=== PATIENT | female | born 2000 | race Caucasian/White ===

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

== ENCOUNTER 2018-03-05 12:05 | Emergency (ER) | payer OTHER, SELFPAY ==
[2018-03-05 14:02] LABS: Urine Blood TRACE (NEG); Urine Glucose NEGATIVE (NEG); Urine Protein NEGATIVE (NEG); Urine Specific Gravity 1.015 (1.005-1.030)
[2018-03-05] MEDS ORDERED: NICOTINE 21 MG/PAT TD ONE (14:12)
[2018-03-05 14:26] LABS: Absolute Lymphocytes (CBC) 2.1 K/uL (0.7-4.9); Absolute Monocytes 0.3 K/uL (0.1-1.3); Eosinophils % 0.5 % (0-4.4); Hematocrit 38.2 % (36.0-45.0); Lymphocytes % 27.7 % (15.3-44.8); MCH 30.3 pg (27.0-35.0); MCV 91.4 fL (80-100); Monocytes % 4.2 % (3.3-12.3); RBC Red Blood Cell Count 4.18 M/uL (3.86-4.86)
[2018-03-05 14:36] LABS: Barbiturates NEGATIVE (NEGATIVE); Benzodiazepines NEGATIVE (NEGATIVE); Cocaine NEGATIVE (NEGATIVE); METHAMPHETAM NEGATIVE (NEGATIVE); Methadone NEGATIVE (NEGATIVE); Opiates NEGATIVE (NEGATIVE); Phencyclidine NEGATIVE (NEGATIVE); THC Cannibis POSITIVE (NEGATIVE)
[2018-03-05 14:39] LABS: Protime INR 1.03
[2018-03-05 15:16] LABS: ALT/SGPT 22 U/L (12-78); AST/SGOT 17 U/L (15-37); Albumin 4.6 g/dL (3.4-5.0); Alkaline Phosphatase 61 U/L (45-117); BUN Blood Urea Nitrogen 4 mg/dL (7-18); Bicarbonate 26 mmol/L (21-32); Bilirubin Direct < 0.1 mg/dL (0-0.2); Bilirubin Total 0.2 mg/dL (0.2-1.0); Glucose Level 89 mg/dL (74-106); Potassium 3.8 mmol/L (3.5-5.1); Protein, Total 8.1 g/dL (6.4-8.2); Sodium Level 142 mmol/L (136-145)
--- NOTE | 2018-03-05 15:20 | EDPHYS ---
Physician Documentation [facility] Name: Etta Mariscal Age: 18 yrs Sex: Female : 2000 Arrival Date: 03/05/2018 Time: 12:06 Bed 17 Private MD: ED Physician Greyson Araiza HPI: 03/05 16:42 This 18 yrs old Female presents to ER via Law Enforcement with complaints of snw depression. 16:42 The patient presents to the emergency department with depression, a history of snw substance abuse, Type: cocaine, marijuana. Onset: The symptoms/episode began/occurred pt had inpatient therapy s/p trauma. Stopped anti-depressants about 7 yrs ago. Pt states they were helpful and she should not have stopped taking them. States she really does not know why she did. Denies SI, HI. Past psychiatric history: Prior diagnosis: bipolar disorder, depression, Psychiatric medications include: none, the patient has a previous inpatient psychiatric history, the patient's last psychiatric treatment was 7 year(s) ago. Associated signs and symptoms: The patient has no apparent associated signs or symptoms. Severity of symptoms: At their worst the symptoms were moderate. The patient has experienced similar episodes in the past, chronically. The patient has been recently seen by a physician: the patient's primary care provider, earlier today, with similar presenting complaints, and was sent to the [facility] Emergency Department for further evaluation. INFECTIOUS DISEASE PHYSICIAN: 12:32 LMP 02/08/2018 aj Historical: - Allergies: 12:32 No Known Allergies; aj - Home Meds: 12:32 None [Active]; aj - PMHx: 12:32 Depression; Endometriosis; aj - PSHx: 12:32 "surgery for my endometriosis"; aj - Immunization history:: Adult Immunizations unknown. - Social history:: Smoking status: Patient uses tobacco products, smokes one-half pack cigarettes per day, Patient uses street drugs, cocaine, marijuana. - Ebola Screening: : Patient negative for fever greater than or equal to 101.5 degrees Fahrenheit, and additional compatible Ebola Virus Disease symptoms Patient denies exposure to infectious person Patient denies travel to an Ebola-affected area in the 21 days before illness onset No symptoms or risks identified at this time. ROS: 16:38 Constitutional: Negative for fever, chills, and weight loss, Eyes: Negative for injury, snw pain, redness, and discharge, ENT: Negative for injury, pain, and discharge, Neck: Negative for injury, pain, and swelling, Cardiovascular: Negative for chest pain, palpitations, and edema, Respiratory: Negative for shortness of breath, cough, wheezing, and pleuritic chest pain, Abdomen/GI: Negative for abdominal pain, nausea, vomiting, diarrhea, and constipation, Back: Negative for injury and pain, : Negative for injury, bleeding, discharge, and swelling, MS/Extremity: Negative for injury and deformity, Skin: Negative for injury, rash, and discoloration, Neuro: Negative for headache, weakness, numbness, tingling, and seizure. 16:38 Psych: Positive for depression, drug dependence, pt states she is neither suicidal nor homicidal. states, "I do not want to ". Exam: 16:36 Constitutional: This is a well developed, well nourished patient who is awake, alert, snw and in no acute distress. Head/Face: Normocephalic, atraumatic. Eyes: Pupils equal round and reactive to light, extra-ocular motions intact. Lids and lashes normal. Conjunctiva and sclera are non-icteric and not injected. Cornea within normal limits. Periorbital areas with no swelling, redness, or edema. ENT: Nares patent. No nasal discharge, no septal abnormalities noted. Tympanic membranes are normal and external auditory canals are clear. Oropharynx with no redness, swelling, or masses, exudates, or evidence of obstruction, uvula midline. Mucous membranes moist. Neck: Trachea midline, no thyromegaly or masses palpated, and no cervical lymphadenopathy. Supple, full range of motion without nuchal rigidity, or vertebral point tenderness. No Meningismus. Chest/axilla: Normal chest wall appearance and motion. Nontender with no deformity. No lesions are appreciated. Cardiovascular: Regular rate and rhythm with a normal S1 and S2. No gallops, murmurs, or rubs. Normal PMI, no JVD. No pulse deficits. Respiratory: Lungs have equal breath sounds bilaterally, clear to auscultation and percussion. No rales, rhonchi or wheezes noted. No increased work of breathing, no retractions or nasal flaring. Abdomen/GI: Soft, non-tender, with normal bowel sounds. No distension or tympany. No guarding or rebound. No evidence of tenderness throughout. Back: No spinal tenderness. No costovertebral tenderness. Full range of motion. MS/ Extremity: Pulses equal, no cyanosis. Neurovascular intact. Full, normal range of motion. Neuro: Awake and alert, GCS 15, oriented to person, place, time, and situation. Cranial nerves II-XII grossly intact. Motor strength 5/5 in all extremities. Sensory grossly intact. Cerebellar exam normal. Normal gait. 16:36 Skin: Appearance: normal except for affected area, injury, abrasion(s), very small abrasion noted, of the left hip, from cutting 4 days ago. 16:39 Psych: Behavior/mood is pleasant, cooperative, depressed, appropriate for age, Affect snw is calm, Oriented to person, place, time, Patient has no thoughts/intents to harm self or others. Judgement / Insight is normal. Delusions/hallucinations are not present. Vital Signs: 12:32 BP 137 / 92; Pulse 62; Resp 16; Temp 99.0; Pulse Ox 100% ; Weight 58.06 kg; Height 5 aj ft. 6 in. (167.64 cm); 15:26 BP 135 / 89; Pulse 64; Resp 16; Pulse Ox 99% on R/A; aj 12:32 Body Mass Index 20.66 (58.06 kg, 167.64 cm) aj MDM: 12:20 Patient medically screened. snw 14:42 Data reviewed: vital signs, nurses notes. Data interpreted: Pulse oximetry: on room air snw is 100 %. Interpretation: normal. Counseling: I had a detailed discussion with the patient and/or guardian regarding: the historical points, exam findings, and any diagnostic results supporting the discharge/admit diagnosis, the presence of at least one elevated blood pressure reading (>120/80) during this emergency department visit, lab results, radiology results. Other consultation: Billie with Jalyn Coleman in speaking with pt. 03/05 13:08 Order name: Urine Dipstick--Ancillary (enter results); Complete Time: 14:04 eb 03/05 13:08 Order name: Urine --Ancillary (enter results); Complete Time: 14:04 eb 03/05 13:49 Order name: Acetaminophen; Complete Time: 15:20 snw 03/05 13:49 Order name: Basic Metabolic Panel; Complete Time: 15:20 snw 03/05 13:49 Order name: CBC with Diff; Complete Time: 14:33 snw 03/05 13:49 Order name: ETOH Level; Complete Time: 14:30 snw 03/05 13:49 Order name: Hepatic Function; Complete Time: 15:20 snw 03/05 13:49 Order name: PT-INR; Complete Time: 14:41 snw 03/05 13:49 Order name: Ptt, Activated; Complete Time: 14:41 snw 03/05 13:49 Order name: Salicylate [facility] 03/05 13:49 Order name: Urine Drug Screen; Complete Time: 14:41 snw 03/05 15:21 Order name: Urine Culture [facility] 03/05 12:51 Order name: Diet Finger Food; Complete Time: 12:51 [facility] 03/05 13:49 Order name: Urine Test (obtain specimen); Complete Time: 13:59 snw 03/05 13:49 Order name: EKG; Complete Time: 13:49 w 03/05 13:49 Order name: EKG - Nurse/Tech; Complete Time: 13:59 snw 03/05 13:49 Order name: IV Saline Lock; Complete Time: 14:00 snw 03/05 13:49 Order name: Labs collected and sent; Complete Time: 14:00 [facility] 03/05 13:49 Order name: Urine Dipstick-Ancillary (obtain specimen); Complete Time: 14:00 snw Administered Medications: 14:11 Drug: Nicotine 21 mg/24 hr 1 patches Route: Transdermal; Site: anterior chest wall; aj 15:17 Drug: Rocephin 1 grams Route: IV; Rate: calculated rate; Site: right antecubital; aj 15:31 Follow up: Response: No adverse reaction; IV Status: Completed infusion; IV Intake: 10mlaj Disposition: 15:37 Co-signature as Attending Physician, Greyson Araiza MD I agree with the assessment and kdr plan of care. Disposition: 03/05/18 15:19 Discharged to Home. Impression: Major depressive disorder, recurrent severe without psychotic features, Drug abuse, Urinary tract infection, site not specified. - Condition is Stable. - Discharge Instructions: Urinary Tract Infection, Adult, Major Depressive Disorder, What You Need To Know About Illegal Drug Use and Dependence, Youth. - Prescriptions for Augmentin 875- 125 mg Oral Tablet - take 1 tablet by ORAL route every 12 hours for 10 days; 20 tablet. Zofran 4 mg Oral Tablet - take 1 tablet by ORAL route every 12 hours As needed; 6 tablet. - Medication Reconciliation Form, Thank You Letter, Antibiotic Education, Prescription Opioid Use form. - Follow up: Private Physician; When: 2 - 3 days; Reason: Recheck today's complaints, Continuance of care, Re-evaluation by your physician. Follow up: Emergency Department; When: As needed; Reason: Worsening of condition. Signatures: Dispatcher [employer] EDMS Sadia Bill RN RN aj Rittger, Kevin, MD MD kdr Therrien, Shelly, ADAM-C ROLLER STAKER-Csnw Corrections: (The following items were deleted from the chart) 15:32 15:19 03/05/2018 15:19 Discharged to Home. Impression: Major depressive disorder, aj recurrent severe without psychotic features; Drug abuse; Urinary tract infection, site not specified. Condition is Stable. Forms are Medication Reconciliation Form, Thank You Letter, Antibiotic Education, Prescription Opioid Use. Follow up: Private Physician; When: 2 - 3 days; Reason: Recheck today's complaints, Continuance of care, Re-evaluation by your physician. Follow up: Emergency Department; When: As needed; Reason: Worsening of condition. snw 16:38 16:36 Skin: Appearance: normal except for affected area, injury, abrasion(s), very snw small abrasion noted, of the left hip, from cutting 4 days ago, snw 16:42 16:36 Constitutional: This is a well developed, well nourished patient who is awake, snw alert, and in no acute distress. Head/Face: Normocephalic, atraumatic. Eyes: Pupils equal round and reactive to light, extra-ocular motions intact. Lids and lashes normal. Conjunctiva and sclera are non-icteric and not injected. Cornea within normal limits. Periorbital areas with no swelling, redness, or edema. ENT: Nares patent. No nasal discharge, no septal abnormalities noted. Tympanic membranes are normal and external auditory canals are clear. Oropharynx with no redness, swelling, or masses, exudates, or evidence of obstruction, uvula midline. Mucous membranes moist. Neck: Trachea midline, no thyromegaly or masses palpated, and no cervical lymphadenopathy. Supple, full range of motion without nuchal rigidity, or vertebral point tenderness. No Meningismus. Chest/axilla: Normal chest wall appearance and motion. Nontender with no deformity. No lesions are appreciated. Cardiovascular: Regular rate and rhythm with a normal S1 and S2. No gallops, murmurs, or rubs. Normal PMI, no JVD. No pulse deficits. Respiratory: Lungs have equal breath sounds bilaterally, clear to auscultation and percussion. No rales, rhonchi or wheezes noted. No increased work of breathing, no retractions or nasal flaring. Abdomen/GI: Soft, non-tender, with normal bowel sounds. No distension or tympany. No guarding or rebound. No evidence of tenderness throughout. Back: No spinal tenderness. No costovertebral tenderness. Full range of motion. MS/ Extremity: Pulses equal, no cyanosis. Neurovascular intact. Full, normal range of motion. Neuro: Awake and alert, GCS 15, oriented to person, place, time, and situation. Cranial nerves II-XII grossly intact. Motor strength 5/5 in all extremities. Sensory grossly intact. Cerebellar exam normal. Normal gait. snw
--- NOTE | 2018-03-05 15:20 | ER ---
Nurse's Notes [facility] Name: Etta Mariscal Age: 18 yrs Sex: Female : 2000 Arrival Date: 03/05/2018 Time: 12:06 Bed 17 Private MD: Diagnosis: Major depressive disorder, recurrent severe without psychotic features;Drug abuse;Urinary tract infection, site not specified Presentation: 03/05 12:29 Presenting complaint: Patient states: Reports superficial cutting to left upper aj thigh/groin area 4 days ago and 1 week ago. Patient reports history of depression. Currently denies suicidal ideation and states "I do not want to end my life.". Transition of care: Sent from [facility] in [place]. Onset of symptoms was February 25, 2018. Risk Assessment: Do you want to hurt yourself or someone else? Patient reports no desire to harm self or others. Initial Sepsis Screen: Does the patient meet any 2 criteria? No. Patient's initial sepsis screen is negative. Does the patient have a suspected source of infection? No. Patient's initial sepsis screen is negative. Care prior to arrival: None. 12:29 Method Of Arrival: Law Enforcement: Mental Health aj 12:29 Acuity: YISSEL 2 aj Triage Assessment: 12:32 General: Appears in no apparent distress. comfortable, Behavior is calm, cooperative, aj appropriate for age. Pain: Denies pain. Neuro: Level of Consciousness is awake, alert, obeys commands, Oriented to person, place, time, situation, Appropriate for age. Respiratory: Airway is patent Respiratory effort is even, unlabored, Respiratory pattern is regular, symmetrical. Derm: Skin is intact, is healthy with good turgor, Skin is pink, warm \\T\\ dry. normal, Superficial lacerations to left upper thigh/groin. Appear scabbed with no redness or inflammation noted. Does not appear infected. DIRECTOR OF PUBLIC RELATIONS: 12:32 LMP 02/08/2018 aj Historical: - Allergies: 12:32 No Known Allergies; aj - Home Meds: 12:32 None [Active]; aj - PMHx: 12:32 Depression; Endometriosis; aj - PSHx: 12:32 "surgery for my endometriosis"; aj - Immunization history:: Adult Immunizations unknown. - Social history:: Smoking status: Patient uses tobacco products, smokes one-half pack cigarettes per day, Patient uses street drugs, cocaine, marijuana. - Ebola Screening: : Patient negative for fever greater than or equal to 101.5 degrees Fahrenheit, and additional compatible Ebola Virus Disease symptoms Patient denies exposure to infectious person Patient denies travel to an Ebola-affected area in the 21 days before illness onset No symptoms or risks identified at this time. Screenin:26 Abuse screen: Denies threats or abuse. Denies injuries from another. Nutritional aj screening: No deficits noted. Tuberculosis screening: No symptoms or risk factors identified. Fall Risk None identified. Assessment: 12:43 Reassessment: Patient appears in no apparent distress at this time. No changes from aj previously documented assessment. Patient and/or family updated on plan of care and expected duration. Pain level reassessed. Patient is alert, oriented x 3, equal unlabored respirations, skin warm/dry/pink. No change from triage. 12:52 Reassessment: Mother and girlfriend are at bedside. aj 15:26 Reassessment: Patient appears in no apparent distress at this time. No changes from aj previously documented assessment. Patient and/or family updated on plan of care and expected duration. Pain level reassessed. Patient is alert, oriented x 3, equal unlabored respirations, skin warm/dry/pink. Psych: 12:36 Subjective: Patient's mood is sad, Delusions are denied. Objective: Patient is aj cooperative, Speech is normal, Affect is appropriate, Patient has mutilated themselves by cutting to left upper thigh/groin. Interventions: Removed personal items and placed in bag. Patient placed in hospital gown. Searched person for dangerous items. Urine collected and sent for urine drug test. Belonging list filled out. Collected white t-shirt, manjula shorts, 2 running style shoes, one silver colored ring, 1 red string bracelet with beads, 1 brown string bracelet with beads, 1 black elastic hair tie, 1 black sports bra. Suicide Risk Assessment: Sad Person Scale: Sex of patient: Female: Score 0 points. Age of patient: Score 1 point if patient 15-34. Depression: Score 1 point if signs of depression are present. Previous Attempt: Score 1 point if patient has previously attempted suicide. Substance Abuse: Score 1 point if patient abuses alcohol or drugs. Rational Thinking: Score 0 point if patient has rational thinking. Social Support: Score 0 if social support is present/available. Organized Plan: Score 0 if patient did not have an organized plan in place. Relationship: Score 0 point if patient has a spouse or domestic partner. Chronic Sickness: Score 0 point if patient does not have a chronic illness, debilitating, or severe disorder. Safety Checks:. Patient uses cocaine, Last use was 1 weeks ago. Patient uses marijuana daily. Vital Signs: 12:32 BP 137 / 92; Pulse 62; Resp 16; Temp 99.0; Pulse Ox 100% ; Weight 58.06 kg; Height 5 aj ft. 6 in. (167.64 cm); 15:26 BP 135 / 89; Pulse 64; Resp 16; Pulse Ox 99% on R/A; aj 12:32 Body Mass Index 20.66 (58.06 kg, 167.64 cm) ED Course: 12:00 Safety checks: Items removed: yes. Door open/sign placed on door: yes. Family/friend mh5 present: no. Sitter present: Yes. 12:06 Patient arrived in ED. mr 12:15 Safety checks: Items removed: yes. Door open/sign placed on door: yes. Family/friend mh5 present: no. Sitter present: Yes. 12:20 Lois Licona FNP-C [facility]. snw 12:20 Greyson Araiza MD is Attending Physician. snw 12:28 Sadia Bill, SULAIMAN is Primary Nurse. aj 12:30 Safety checks: Items removed: yes. Door open/sign placed on door: yes. Family/friend mh5 present: no. Sitter present: Yes. 12:32 Triage completed. aj 12:32 Arm band placed on left wrist. Patient placed in an exam room, on a stretcher. aj 12:45 Safety checks: Items removed: yes. Door open/sign placed on door: yes. Family/friend mh5 present: yes. Family/friends encouraged to stay with patient. Sitter present: Yes. 12:49 Initial lab(s) drawn, by me, sent to lab. Urine collected: clean catch specimen, clear. mh5 Inserted saline lock: 22 gauge in right antecubital area, using aseptic technique. Blood collected. 13:00 Safety checks: Items removed: yes. Door open/sign placed on door: yes. Family/friend mh5 present: yes. Family/friends encouraged to stay with patient. Sitter present: Yes. 13:10 Diet: Patient given a regular meal tray. [facility] 13:11 Urine --Ancillary (enter results) Sent. [facility] 13:11 Urine Dipstick--Ancillary (enter results) Sent. [facility] 13:15 Safety checks: Items removed: yes. Door open/sign placed on door: yes. Family/friend mh5 present: yes. Sitter present: Yes. 13:30 Safety checks: Items removed: yes. Door open/sign placed on door: yes. Family/friend mh5 present: yes. Family/friends encouraged to stay with patient. Sitter present: Yes. 13:45 Safety checks: Items removed: yes. Door open/sign placed on door: yes. Family/friend dg1 present: yes. Family/friends encouraged to stay with patient. Sitter present: Yes. 14:00 Safety checks: Items removed: yes. Door open/sign placed on door: yes. Family/friend dg1 present: yes. Family/friends encouraged to stay with patient. Sitter present: Yes. 14:13 Safety checks: Items removed: yes. Door open/sign placed on door: yes. Family/friend dg1 present: Other: instructional services specialist in room with patient Sitter present: Yes. 14:13 EKG done, by oven technician. reviewed by Lois DIA sm3 14:39 Safety checks: Items removed: yes. Door open/sign placed on door: yes. Family/friend dg1 present: Other: instructional services specialist in room with patient Sitter present: Yes. 14:54 Safety checks: Items removed: yes. Door open/sign placed on door: yes. Family/friend dg1 present: yes. Sitter present: Yes. 15:26 Patient has correct armband on for positive identification. aj 15:26 No provider procedures requiring assistance completed. IV discontinued, bleeding aj controlled, No redness/swelling at site. Pressure dressing applied. Administered Medications: 14:11 Drug: Nicotine 21 mg/24 hr 1 patches Route: Transdermal; Site: anterior chest wall; aj 15:17 Drug: Rocephin 1 grams Route: IV; Rate: calculated rate; Site: right antecubital; aj 15:31 Follow up: Response: No adverse reaction; IV Status: Completed infusion; IV Intake: 10mlaj Intake: 15:31 IV: 10ml; Total: 10ml. maryana Outcome: 15:19 Discharge ordered by . guillermo 15:26 Discharged to home ambulatory, with family, with significant other. maryana 15:26 Condition: good 15:26 Discharge instructions given to patient, family, significant other, Instructed on discharge instructions, follow up and referral plans. medication usage, Demonstrated understanding of instructions, follow-up care, medications, Prescriptions given X 2. 15:32 Patient left the ED. aj Addendum: 03/08/2018 13:40 Addendum: Culture Results: Positive urine culture. Bacteria is resistant to, has i w intermediate sensitivity, or is not tested against prescribed antibiotics. Report given to MARIO for further evaluation and then to supervisor alteration workroom for follow up with patient. Phone call Attempt #1 spoke with pt mother who states that the pt phone was cut off but now she has a new phone number which is , pt was notified via telephone, no urinary symptoms, no further action needed. Signatures: Sadia Bill, Lois Ramirez RN, SALES FORECAST ANALYST-C SALES FORECAST ANALYST-Csnw Zita Edward Irene, Zita Chilel RN [facility] Janet Pool 3 Maria Del Rosario Conley 1 Corrections: (The following items were deleted from the chart) 03/05 12:40 12:32 58.06 kg; Height 5 ft. 6 in.; BMI: 20.6; maryana mijares
[2018-03-05] MEDS ORDERED: CEFTRIAXONE/SWI 1gm 1 GM/10 ML SYR ONE (15:21)
--- NOTE | 2018-03-06 06:56 | EKG ---
Test Date: 2018-03-05 Test Time: 13:56:34 Precision Dancer: AG/S MEASUREMENT RESULTS: Intervals: Rate: 75 WA: 150 QRSD: 96 QT: 378 QTc: 422 [place]: P: 46 WA: 150 QRS: 84 T: 25 INTERPRETIVE STATEMENTS: Normal sinus rhythm Normal ECG Compared to ECG 07/22/2017 21:19:41 No significant changes Electronically Signed On 03-06-18 06:54:43 CDT by Lazaro Vergara
== END 2018-03-05 15:32 | disposition home or self-care (01) ==
LOC: ER 12:05
DX: N39.0 Urinary tract infection, site not specified (principal); F14.10 Cocaine abuse, uncomplicated; F12.10 Cannabis abuse, uncomplicated; F17.210 Nicotine dependence, cigarettes, uncomplicated
CPT/HCPCS: 36415; 80048; 80076; 80307; 80320; 80329; 81003; 81025; 85025; 85610; 85730; 87077; 87086; 87088; 87186; 93005; 96374; 99284; J0696

== ENCOUNTER 2018-08-10 15:12 | Emergency (ER) | payer OTHER, SELFPAY ==
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
[2018-08-10] MEDS ORDERED: HYDROCODONE/APAP 5/325 MG TAB ONE (17:19)
[2018-08-10] MEDS ORDERED: DIAZEPAM 2 MG TABLET ONE (17:20)
== END 2018-08-10 17:26 | disposition home or self-care (01) ==
LOC: ER 15:12
DX: M62.830 Muscle spasm of back (principal); V49.40XA Driver injured in collision with unspecified motor vehicles in traffic accident, initial encounter; F17.210 Nicotine dependence, cigarettes, uncomplicated
CPT/HCPCS: 72040; 72070; 72100; 99284

== ENCOUNTER 2020-10-21 12:52 | Emergency (ER) | payer SELFPAY ==
--- OUTSIDE RECORDS SUMMARY | 2020-10-21 12:54 | XMS REPORT | Continuity of Care Document ---
:2000 Author Organization [facility] t Address [address] [place] [place] [address] Care Team Providers Name Role Phone Candis Dow Attending Clinician Shanthi Das DO Attending Clinician Payers Payer Name Policy Type Policy Number Effective Date Expiration Date S ource Problems This patient has no known problems. Allergies, Adverse Reactions, Alerts This patient has no known allergies or adverse reactions. Medications This patient has no known medications. Procedures This patient has no known procedures. Encounters Start End Encounter Admission Attending Care Care Encounter Source Date/Time Date/Time Type Type Clinicians Facility Department ID 2020-02-10 2020-02-10 Emergency Kimmy Sharif [facility] [id number] 12:09:00 13:46:00 Candis Robb [id number] [place] [id number] [place] [id number] 2019-08-20 2019-08-20 Emergency GALLITO Das [id number] 01:23:35 01:46:00 Zoë Robb [id number] [place] [id number] [place] [address] [id number] Results Test Description Test Time Test Comments Results Result [facility] e Comments - US TRANSVAGINAL 2020-05-29 NON OB 16:46:00 [facility] : 2000 Sex: F Patient Name: CRISTIANO MARISCAL Unit No: [id number] EXAMS: CPT CODE: [id number] [place] [id number] B2 EXAM: Pelvic ultrasound HISTORY: ENDOMETRIOSIS/VAGINAL BLEEDING TECHNIQUE: Grayscale, color flow and spectral Doppler transabdominal and transvaginal ultrasound images were obtained. COMPARISON: 11/12/2018 FINDINGS: The uterus measures 5.8 x 2.1 x 3.9 cm. Endometrial stripe measures 5 mm. The uterus is otherwise normal in appearance. The right ovary measures 2.8 x 1.9 x 3.5 cm and the left ovary measures 2.2 x 1.5 x 1.7 cm. Normal ovarian blood flow is seen bilaterally. Mild amount of free fluid is seen in the pelvic cul-de-sac. IMPRESSION: Unremarkable pelvic ultrasound. at 1646 Reported and signed by: Lencho Leo MD CC: Stella Burkett MD Technologist: Salas Mortensen, RT(R),RDMS(AB); DC TV1 SN [id number] Transcrpt Date/Tm/Trnsp: 05/29/2020 (164) [email or web address] Orig Print D/T: S: 05/29/2020 (331) [facility] [facility] NAME: CRISTIANO MARISCAL [id number] [facility] [address] PHYS: [place] [address] : 2000 AGE: 20 SEX: F LOC: GonzaloMinhFARHAD PHONE #: [phone] EXAM DATE: 05/29/2020 STATUS: REG REF FAX #: [phone] RADIOLOGY NO: PAGE 1 Signed Report - US PELVIS 2020-05-29 COMPLETE 16:46:00 [facility] : 2000 Sex: F Patient Name: CRISTIANO MARISCAL Unit No: [id number] EXAMS: CPT CODE: [id number] US PELVIS COMPLETE [id number] B2 EXAM: Pelvic ultrasound HISTORY: ENDOMETRIOSIS/VAGINAL BLEEDING TECHNIQUE: Grayscale, color flow and spectral Doppler transabdominal and transvaginal ultrasound images were obtained. COMPARISON: 11/12/2018 FINDINGS: The uterus measures 5.8 x 2.1 x 3.9 cm. Endometrial stripe measures 5 mm. The uterus is otherwise normal in appearance. The right ovary measures 2.8 x 1.9 x 3.5 cm and the left ovary measures 2.2 x 1.5 x 1.7 cm. Normal ovarian blood flow is seen bilaterally. Mild amount of free fluid is seen in the pelvic cul-de-sac. IMPRESSION: Unremarkable pelvic ultrasound. at 1646 Reported and signed by: Lencho Leo MD CC: Stella Burkett MD Technologist: Salas Mortensen, RT(R),GEOFFREY(AB) Transcrpt Date/Tm/Trnsp: 05/29/2020 (1646) [email or web address] Orig Print D/T: S: 05/29/2020 (7160) [facility] NAME: CRISTIANO MARISCAL [id number] [facility] [address] PHYS: [place] [address] : 2000 AGE: 20 SEX: F LOC: CHRISTIANNE PHONE #: [phone] EXAM DATE: 05/29/2020 STATUS: REG REF FAX #: [phone] RADIOLOGY NO: PAGE 1 Signed Report - US TRANSVAGINAL 2018-11-12 Patient Name: NON OB 16:24:00 CRISTIANO MARISCAL Unit No: [id number] EXAMS: CPT CODE: [id number] [place] [id number] EXAMINATION: - US PELVIS COMPLETE, - US TRANSVAGINAL NON OB. LOCATION: S17. HISTORY: Endometriosis. COMPARISON: None. FINDINGS: Sonographic evaluation of the pelvis was performed transabdominally through a distended urinary bladder and transvaginally utilizing grayscale, pulse Doppler and color flow imaging. The uterus appears unremarkable in echotexture and measures 5.0 x 5.9 x 3.5 cm. The endometrial stripe measures 4 mm in thickness. The right ovary measures 3.1 x 3.3 x 2 cm and appears unremarkable. The left ovary measures 2.2 x 3.3 x 2.3 cm and appears unremarkable. Arterial and venous flow is noted within the bilateral ovaries. Small free fluid is identified in the cul-de-sac, presumably physiologic. IMPRESSION: Unremarkable pelvic sonogram. at 1624 Reported and signed by: Scott Cantu CC: Stella Burkett MD Technologist: Salas Mortensen, RT(R),RDMS(AB); [facility] TV1 SN [id number] Transcrpt Date/Tm/Trnsp: 11/12/2018 (1624) [email or web address] Orig Print D/T: S: 11/12/2018 (6908) [facility] NAME: CRISTIANO MARISCAL [id number] [facility] [address] PHYS: [place] [address] : 2000 AGE: 18 SEX: F LOC: CHRISTIANNE PHONE #: [phone] EXAM DATE: 11/12/2018 STATUS: PRE CLI FAX #: [phone] RADIOLOGY NO: PAGE 1 Signed Report - US PELVIS 2018-11-12 Patient Name: COMPLETE 16:24:00 CRISTIANO MARISCAL Unit No: [id number] EXAMS: CPT CODE: [id number] US PELVIS COMPLETE [id number] EXAMINATION: - US PELVIS COMPLETE, - US TRANSVAGINAL NON OB. LOCATION: S17. HISTORY: Endometriosis. COMPARISON: None. FINDINGS: Sonographic evaluation of the pelvis was performed transabdominally through a distended urinary bladder and transvaginally utilizing grayscale, pulse Doppler and color flow imaging. The uterus appears unremarkable in echotexture and measures 5.0 x 5.9 x 3.5 cm. The endometrial stripe measures 4 mm in thickness. The right ovary measures 3.1 x 3.3 x 2 cm and appears unremarkable. The left ovary measures 2.2 x 3.3 x 2.3 cm and appears unremarkable. Arterial and venous flow is noted within the bilateral ovaries. Small free fluid is identified in the cul-de-sac, presumably physiologic. IMPRESSION: Unremarkable pelvic sonogram. at 1624 Reported and signed by: Scott Cantu CC: Stella Burkett MD Technologist: Salas Mortensen, RT(R),RDMS(AB) Transcrpt Date/Tm/Trnsp: 11/12/2018 (8534) [email or web address] Orig Print D/T: S: 11/12/2018 (4380) [facility] NAME: CRISTIANO MARISCAL [address] [place] [address] PHYS: [place] [address] : 2000 AGE: 18 SEX: F LOC: CHRISTIANNE PHONE #: [phone] EXAM DATE: 11/12/2018 STATUS: PRE CLI FAX #: [phone] RADIOLOGY NO: PAGE 1 Signed Report
--- NOTE | 2020-10-21 13:30 | EDPHYS ---
Physician Documentation [facility] Name: Etta Mariscal Age: 20 yrs Sex: Female : 2000 Arrival Date: 10/21/2020 Time: 12:54 Bed 12 Private MD: GUS Physician Aab Jimenez HPI: 10/21 13:58 This 20 yrs old Female presents to ER via Ambulatory with complaints of Sore kb Throat, Headache. 13:58 The patient presents with sore throat. The patient describes throat pain as constant. kb Onset: The symptoms/episode began/occurred yesterday. Severity of symptoms: At their worst the symptoms were moderate, in the emergency department the symptoms are unchanged. Modifying factors: The symptoms are alleviated by nothing, the symptoms are aggravated by swallowing, Patient's oral intake status: limited fluid intake, limited food intake. Associated signs and symptoms: Pertinent positives: fever, headache, Sore throat Pertinent negatives shortness of breath. The patient has experienced similar episodes in the past. The patient has not recently seen a physician. Pt reports sore throat that started last night. States she has had strep many times in the past and it feels the same. States headache started this morning and she had a fever at triage, but is unsure if she had one at home. 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 - Social history:: Smoking status: Patient denies any tobacco usage or history of. ROS: 13:57 Respiratory: Negative for shortness of breath, cough, wheezing, and pleuritic chest kb pain. 13:57 Constitutional: Positive for fever. 13:57 ENT: Positive for sore throat. 13:57 Neuro: Positive for headache. Exam: 13:59 Constitutional: This is a well developed, well nourished patient who is awake, alert, kb and in no acute distress. Cardiovascular: Regular rate and rhythm with a normal S1 and S2. No gallops, murmurs, or rubs. No pulse deficits. Respiratory: Respirations even and unlabored. No increased work of breathing, no retractions or nasal flaring. Skin: Warm, dry with normal turgor. Normal color. MS/ Extremity: Pulses equal, no cyanosis. Neurovascular intact. Full, normal range of motion. Neuro: Awake and alert, GCS 15, oriented to person, place, time, and situation. Moves all extremities. Normal gait. 13:59 ENT: Mouth: is normal, Posterior pharynx: Airway: normal, Tonsils: bilaterally enlarged, with erythema, with exudate, Uvula: normal, midline, swelling, that is moderate, erythema, that is moderate, exudate, that is moderate. Vital Signs: 13:02 BP 115 / 77; Pulse 94; Resp 17; Temp 99.3(O); Pulse Ox 100% on R/A; Weight 52.62 kg 7 (R); Height 5 ft. 5 in. (165.10 cm); Pain 10/10; 13:02 Body Mass Index 19.30 (52.62 kg, 165.10 cm) jl7 MDM: 13:11 Patient medically screened. 13:56 Data reviewed: vital signs, nurses notes. Data interpreted: Pulse oximetry: on room air kb is 100 %. Interpretation: normal. Counseling: I had a detailed discussion with the patient and/or guardian regarding: the historical points, exam findings, and any diagnostic results supporting the discharge/admit diagnosis, lab results, the need for outpatient follow up, a family practitioner, to return to the emergency department if symptoms worsen or persist or if there are any questions or concerns that arise at home. 16:42 Data reviewed: lab test result(s). perez 10/21 13:07 Order name: Strep jl7 10/21 13:08 Order name: Group A Streptococcus Rapid Sc; Complete Time: 13:26 EDMS Administered Medications: 13:17 Drug: GI Cocktail without - (Maalox Suspension 30 ml, Lidocaine Liquid 2 % 15 jl7 ml) Route: PO; 13:30 Follow up: Response: No adverse reaction; Pain is decreased ss 13:47 Drug: Bicillin L-A (penicillin G Benzathine) 1.2 million units Route: IM; Site: right ss gluteus; 13:59 Follow up: Response: No adverse reaction ss Disposition: 10/21/20 13:30 Discharged to Home. Impression: Streptococcal pharyngitis. - Condition is Stable. - Discharge Instructions: Strep Throat, [id number]. - Medication Reconciliation Form, Thank You Letter, Antibiotic Education, Prescription Opioid Use form. - Follow up: Emergency Department; When: As needed; Reason: Worsening of condition. Follow up: Private Physician; When: 2 - 3 days; Reason: Recheck today's complaints, Continuance of care, Re-evaluation by your physician. Addendum: 10/23/2020 09:40 Co-signature as Attending Physician, Aba Jimenez MD I agree with the assessment and c watkins plan of care. Signatures: Dispatcher [employer] EDMS Rochelle Juarez, ORDINARY SEAMAN-C ORDINARY SEAMAN-Joseb Aba Jimenez MD MD cha Smirch, Shelby, RN RN Macario Edmonds RN RN jl7 Corrections: (The following items were deleted from the chart) 10/21 13:59 13:30 10/21/2020 13:30 Discharged to Home. Impression: Streptococcal pharyngitis. ss Condition is Stable. Forms are Medication Reconciliation Form, Thank You Letter, Antibiotic Education, Prescription Opioid Use. Follow up: Emergency Department; When: As needed; Reason: Worsening of condition. Follow up: Private Physician; When: 2 - 3 days; Reason: Recheck today's complaints, Continuance of care, Re-evaluation by your physician. kb
--- NOTE | 2020-10-21 13:30 | ER ---
Nurse's Notes [facility] Name: Etta Mariscal Age: 20 yrs Sex: Female : 2000 Arrival Date: 10/21/2020 Time: 12:54 Bed 12 Private MD: Diagnosis: Streptococcal pharyngitis Presentation: 10/21 13:02 Chief complaint: Patient states: Swollen tonsils with white patches and sore throat jl7 since yesterday and BURNS started this morning. Denies N/V/D. Coronavirus screen: Client denies travel out of the [place] in the last 14 days. At this time, the client does not indicate any symptoms associated with coronavirus-19. Ebola Screen: No symptoms or risks identified at this time. Initial Sepsis Screen: Does the patient meet any 2 criteria? No. Patient's initial sepsis screen is negative. Does the patient have a suspected source of infection? No. Patient's initial sepsis screen is negative. Risk Assessment: Do you want to hurt yourself or someone else? Patient reports no desire to harm self or others. Onset of symptoms was October 20, 2020. Care prior to arrival: None. 13:02 Method Of Arrival: Ambulatory jl7 13:02 Acuity: YISSEL 4 jl7 Triage Assessment: 13:05 General: Appears in no apparent distress. uncomfortable, Behavior is calm, cooperative, jl7 appropriate for age. Pain: Complains of pain in throat Pain currently is 10 out of 10 on a pain scale. EENT: Throat is reddened has enlarged tonsils bilaterally. Neuro: Level of Consciousness is awake, alert, obeys commands, Oriented to person, place, time, situation. Cardiovascular: Patient's skin is warm and dry. Respiratory: Airway is patent Respiratory effort is even, unlabored, Respiratory pattern is regular, symmetrical. Derm: Skin is pink, warm \T\ dry. 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 - Social history:: Smoking status: Patient denies any tobacco usage or history of. Screenin:17 Abuse screen: Denies threats or abuse. Denies injuries from another. Nutritional jl7 screening: No deficits noted. Tuberculosis screening: No symptoms or risk factors identified. Fall Risk None identified. Assessment: 13:17 General: See triage assessment. Respiratory: Airway is patent Respiratory effort is jl7 even, unlabored, Respiratory pattern is regular, symmetrical, Breath sounds are clear bilaterally. 13:49 Reassessment: awaiting shot time. ss Vital Signs: 13:02 BP 115 / 77; Pulse 94; Resp 17; Temp 99.3(O); Pulse Ox 100% on R/A; Weight 52.62 kg jl7 (R); Height 5 ft. 5 in. (165.10 cm); Pain 10/10; 13:02 Body Mass Index 19.30 (52.62 kg, 165.10 cm) jl7 ED Course: 12:54 Patient arrived in ED. cl3 13:03 Rochelle Juarez FNP-C is PHCP. kb 13:03 Aba Jimenez MD is Attending Physician. kb 13:04 Triage completed. jl7 13:05 Arm band placed on right wrist. jl7 13:10 Macario Mensah, RN is Primary Nurse. jl7 13:15 Strep swab sent to lab. jl7 13:17 Patient has correct armband on for positive identification. Call light in reach. Side jl7 rails up X 1. 13:18 No provider procedures requiring assistance completed. Patient did not have IV access jl7 during this emergency room visit. Administered Medications: 13:17 Drug: GI Cocktail without - (Maalox Suspension 30 ml, Lidocaine Liquid 2 % 15 jl7 ml) Route: PO; 13:30 Follow up: Response: No adverse reaction; Pain is decreased ss 13:47 Drug: Bicillin L-A (penicillin G Benzathine) 1.2 million units Route: IM; Site: right ss gluteus; 13:59 Follow up: Response: No adverse reaction ss Outcome: 13:30 Discharge ordered by . kb 13:49 Condition: stable ss 13:49 Discharge instructions given to patient, Instructed on discharge instructions, follow up and referral plans. medication usage, Demonstrated understanding of instructions, follow-up care, medications, Prescriptions given X 1. 13:49 Discharged to home ambulatory. ss 13:59 Patient left the ED. ss Signatures: Rochelle Juarez, ANGELA MEDINA-Christina Arrington, RN RN Macario Mensah RN RN [email or web address] Aaliyah Keating cl3
[2020-10-21] MEDS ORDERED: MAGNES/ALUMIN/SIMET 30ML UCUP ONE (13:32)
[2020-10-21] MEDS ORDERED: LIDOCAINE VISCOUS 2% SOLN 15 ML UDC ONE (13:32)
[2020-10-21] MEDS ORDERED: PEN G BENZ LA 1.2MU/2ML SYRINGE IM ONE (14:02)
[2020-10-21 14:15] VITALS: BP 115/77; TEMP 99.3; O2SAT 100
== END 2020-10-21 13:59 | disposition home or self-care (01) ==
LOC: ER 12:52
DX: J02.0 Streptococcal pharyngitis (principal); F41.9 Anxiety disorder, unspecified; F32.9 Major depressive disorder, single episode, unspecified
CPT/HCPCS: 87081; 96372; 99283; J0561

== ENCOUNTER 2020-11-08 00:49 | Emergency (ER) | payer SELFPAY ==
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
[2020-11-08] MEDS ORDERED: NA CHLORIDE 0.9% 1,000 ML ONE (01:29)
[2020-11-08 01:48] LABS: ALT/SGPT 19 U/L (12-78); AST/SGOT 17 U/L (15-37); Albumin 3.8 g/dL (3.4-5.0); Alkaline Phosphatase 62 U/L (45-117); BUN Blood Urea Nitrogen 9 mg/dL (7-18); Bicarbonate 22 mmol/L (21-32); Bilirubin Direct < 0.1 mg/dL (0-0.2); Bilirubin Total 0.2 mg/dL (0.2-1.0); Glucose Level 89 mg/dL (74-106); Potassium 3.6 mmol/L (3.5-5.1); Sodium Level 150 mmol/L (136-145)
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
[2020-11-08 07:02] VITALS: TEMP 97.9
[2020-11-08 07:08] VITALS: O2SAT 99
[2020-11-08 07:18] VITALS: BP 112/78
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
--- NOTE | 2020-11-08 11:57 | EKG ---
Test Date: 2020-11-08 Test Time: 01:25:30 [employer] [place]: SATYA MEASUREMENT RESULTS: Intervals: Rate: 91 AK: 182 QRSD: 100 QT: 366 QTc: 450 [place]: P: 36 AK: 182 QRS: 89 T: 27 INTERPRETIVE STATEMENTS: Normal sinus rhythm Normal ECG Compared to ECG 03/05/2018 13:56:34 No significant changes Electronically Signed On 11-08-20 11:56:49 CDT by Lazaro Vergara
== END 2020-11-08 06:51 | disposition home or self-care (01) ==
LOC: ER 00:49
DX: Z04.1 Encounter for examination and observation following transport accident (principal); F10.129 Alcohol abuse with intoxication, unspecified; F41.9 Anxiety disorder, unspecified; F32.9 Major depressive disorder, single episode, unspecified; Y90.8 Blood alcohol level of 240 mg/100 ml or more
CPT/HCPCS: 36415; 70450; 71045; 72125; 80048; 80076; 80320; 80329; 93005; 96360; 99284; J7030

== ENCOUNTER 2022-05-16 14:17 | Emergency (ER) | payer OTHER ==
--- OUTSIDE RECORDS SUMMARY | 2022-05-16 16:01 | XMS REPORT | Continuity of Care Document ---
:2000 Author Organization [facility] [place] t Address [address] [place] [address] Care Team Providers Name Role Phone Pcp, Patient Does Not Have A Primary Care Physician [phone] NICOLE ANGUIANO Attending Clinician Unavailable Nicole Anguiano MD Attending Clinician Neville Canales MD Attending Clinician Channing Andrade CRNA Attending Clinician Doctor Unassigned, [place] Attending Clinician Unavailable Pob, [facility] Lab Main Attending Clinician Unavailable DAVIN CARRILLO Attending Clinician Unavailable Davin Carrillo PA-C Attending Clinician 2, [facility] Attending Clinician Unavailable Ultrasound, Adc Mfm Attending Clinician Unavailable Bessy Ryan MD Attending Clinician [phone] BESSY RYAN Attending Clinician Unavailable GABRIELA SERRANO Attending Clinician Unavailable Kindra Beck Attending Clinician Gabriela Serrano MD Attending Clinician DORYS ALEJANDRE Attending Clinician Unavailable Dorys Alejandre MD Attending Clinician 1, [facility] Attending Clinician Unavailable JOEY, KATYE R Attending Clinician Unavailable Joey MEDINA, Regina Harry Attending Clinician Ryan García MD Attending Clinician Kimmy Dow Attending Clinician Cari MEDINA, Ryan Nolasco Attending Clinician TamStella joel Attending Clinician Unavailable Raju_P Attending Clinician Unavailable Zoë Das DO Attending Clinician GABRIELA SERRANO Admitting Clinician Unavailable Nicole Anguiano MD Admitting Clinician NICOLE ANGUIANO Admitting Clinician Unavailable Gabriela Serrano MD Admitting Clinician Kwadwo Stella Admitting Clinician Unavailable Rajchantelle_P Admitting Clinician Unavailable Payers Payer Name Policy Type Policy Number Effective Date Expiration Date Vazquez pardo [facility] [id number] 2021 00:00:00 Problems Condition Condition Condition Status Onset Resolution Last Treating Co mments Source Name Details Category Date Date Treatment Clinician Date Liveborn Liveborn Disease Active Unive rs , of , of 11-15 it y of john john 00:[place] , , 00 Me dical born in born in [facility] by vaginal by vaginal delivery delivery 39 weeks 39 weeks Disease Active Unive rs gestation gestation 11-14 ity of of of 00:00: [place] 00 [facility] Encounter Encounter Disease Active Uni vers for for 11-14 ity of planned planned 00:00: [place] induction induction 00 [facility] of labor of labor Branch 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 00:00: [place] spine, spine, 00 Medical mild mild Branch Anemia of Anemia of Disease Active Uni vers mother in mother in 10-09 [place]y [place] , , [place]ical condition condition Bran ch Anemia of Anemia of Disease Active Uni vers mother in mother in 10-09 ity of , , [place] antepartum antepartum 00 Md dical Branch History of History of Disease Active U nivers anxiety anxiety 3-30 ity of 00:00: [place] [id number] Medical Branch History of History of Disease Active U nivers depression depression 3-30 it y of 00:00: [address] Shortness Shortness Disease Active Uni vers of breath of breath 1-24 ity of 00:00: [address] Branch High risk High risk Disease Active 2020-06 Uni vers , , 1-29 it y of antepartum antepartum 00:00: [address] Trauma Trauma Disease Active Univers ity of [facility] Allergies, Adverse Reactions, Alerts Allergy Allergy Status Severity Reaction(s) Onset Inactive Treating Comm ents Source Name Type Date Date Clinician NO KNOWN Drug Active Univers ALLERGIE Class ity of S [facility] Social History Social Habit Start Date Stop Date Quantity Comments Source ASSERTION 2021-02-25 University of 00:00:00 [facility] History SDOH University o f Alcohol Frequency [facility] edical Branch History SDOH University o f Alcohol Std [place] Medical Drinks Branch History SDMI University o f Alcohol Binge [place] Medic al Branch Exposure to 2021-12-10 2021-12-20 Not sure [facility] SARS-CoV-2 00:00:00 15:50:00 [facility] (event) [place] Alcohol intake 2021-05-14 2021-05-14 Ex-drinker University 00:00:00 00:00:00 (finding) [facility] Tobacco use and 2021-05-14 2021-05-14 Current user Univers ity of exposure 00:00:00 00:00:00 [facility] Tobacco Comment 2018-11-20 2018-11-20 started at age 8 Un iversity of 00:00:00 00:00:00 [facility] Alcohol Comment 2017-09-29 2017-09-29 occasional Universit y of 00:00:00 00:00:00 [facility] Sex Ass[birth year] At [birth year] Universit y of 00:00:00 00:00:00 [facility] Smoking Status Start Date Stop Date Source Never smoker [facility] Medications Ordered Filled Start Stop Current Ordering Indication Dosage Frequency Signature Comments Components Source Medication Medication Date Date Medication? Clinician (SIG) Name Name LETY 2021- No Take by Univers no.95/edgar 6-03 06-03 mouth. ity o f us 07:41: 00:00 [place] fum/folic 13 :00 Medical ac Branch ( ORAL) Yes [id number] 1{tbl} Take 1 U nivers vitamin 6-03 tablet by ity of w/FA tablet 00:00: mouth [place] 00 daily. Medical Branch docusate Yes [id number] 200mg Take 2 Un yadiel 100 mg 6-03 capsules ity of capsule 00:00: by mouth [place] 00 once daily Medical as needed Branch for Constipati on. ferrous Yes [id number] 325mg Take 1 Uni vers sulfate 325 6-03 tablet by ity of mg (65 mg 00:00: mouth 2 [place] iron) 00 (two) Medical tablet times Branch daily. ibuprofen Yes [id number] 600mg Take 1 U nivers 600 mg 6-03 tablet by ity of tablet 00:00: mouth [place] 00 every 6 Medical (six) Branch hours as needed (Pain). Take with food or milk. Yes [id number] 1{tbl} Take 1 U nivers vitamin 6-03 tablet by ity of w/FA tablet 00:00: mouth [place] 00 daily. Medical Branch docusate 0 Yes [id number] 200mg Take 2 Un yadiel 100 mg 6-03 capsules ity of capsule 00:00: by mouth [place] 00 once daily Medical as needed Branch for Constipati on. ferrous Yes [id number] 325mg Take 1 Uni vers sulfate 325 6-03 tablet by ity of mg (65 mg 00:00: mouth 2 [place] iron) 00 (two) Medical tablet times Branch daily. ibuprofen Yes [id number] 600mg Take 1 U nivers 600 mg 6-03 tablet by ity of tablet 00:00: mouth [place] 00 every 6 Medical (six) Branch hours as needed (Pain). Take with food or milk. 2021-0 Yes [id number] 1{tbl} Take 1 U nivers vitamin 6-03 tablet by ity of w/FA tablet 00:00: mouth [place] 00 daily. Medical Branch docusate 0 Yes [id number] 200mg Take 2 Un yadiel 100 mg 6-03 capsules ity of capsule 00:00: by mouth [place] 00 once daily Medical as needed Branch for Constipati on. ferrous 2021-0 Yes [id number] 325mg Take 1 Uni vers sulfate 325 6-03 tablet by ity of mg (65 mg 00:00: mouth 2 [place] iron) 00 (two) Medical tablet times Branch daily. ibuprofen 0 Yes [id number] 600mg Take 1 U nivers 600 mg 6-03 tablet by ity of tablet 00:00: mouth [place] 00 every 6 Medical (six) Branch hours as needed (Pain). Take with food or milk. witch Erick 2021-0 Yes Topical, Un yadiel (TUCKS) 50 6-02 Q4HPRN, ity of % topical 10:49: [place] pad 33 on [facility] Medical 11/15/21 at Branch 0549, Until Discontinu ed, Routine, rectal/hem orrhoidal pain HYDROcodone 0 Yes 1{tbl} 1 tablet, Univers -acetaminop 11-15 Oral, ity of hen (NORCO 10:49: Q6HPRN, [place] 5) 5-325 mg 33 Starting Medi nikia tablet 1 on [facility] Branch tablet 11/15/21 at 0549, Until Discontinu ed, Routine, Pain (scale 7-10) ibuprofen Yes 600mg 600 mg, [facility] ers (IBU) 6 Oral, ity of tablet 600 10:49: Q6HPRN, [place] mg 33 Starting Medical on [facility] Branch 11/15/21 at 0549, Until Discontinu ed, Routine, Pain (scale 4-6) acetaminoph Yes 650mg 650 mg, Un yadiel en 6- Oral, ity of (TYLENOL) 10:49: Q6HPRN, [place] tablet 650 33 Starting Medic al mg on [facility] Branch 11/15/21 at 0549, Until Discontinu ed, Routine, Pain (scale 1-3) diphenhydrA 0 Yes 25mg 25 mg, Univ ers MINE 11-15 Oral, ity of (BENADRYL) 10:49: Q6HPRN, [place] tablet 25 33 Starting Medica l mg on [facility] Branch 11/15/21 at 0549, Until Discontinu ed, Routine, Sleep, Itching ondansetron 0 Yes 4mg 4 mg, Slow Univers (ZOFRAN 11-15 IV Push, ity of (PF)) 10:49: Q8HPRN, [place] injection 4 33 Starting Medi nikia mg on [facility] Branch 11/15/21 at 0549, Until Discontinu ed, Routine, Nausea and Vomiting (N/V) simethicone 0 Yes 160mg 160 mg, Un yadiel (GAS RELIEF 11-15 Oral, ity of (SIMETHICON 10:49: PC+HSPRN, [place] E)) 33 Starting Medical chewable on [facility] tablet 160 11/15/21 at mg 0549, Until Discontinu ed, Routine, Gas docusate 0 Yes 200mg 200 mg, Unive rs (COLACE) 11-15 Oral, ity of capsule 200 10:49: QDAILYPRN, [place] mg 33 Starting Medical on [facility] Branch 11/15/21 at 0549, Until Discontinu ed, Routine, Constipati on magnesium 0 Yes 30mL 30 mL, Univer s hydroxide 11-15 Oral, ity of (MILK OF 10:49: QDAILYPRN, [place] MAGNESIA) 33 Starting Medica l 400 mg/5 mL on [facility] Branch suspension 11/15/21 at 30 mL 0549, Until Discontinu ed, Routine, Constipati on benzocaine- 0 Yes Topical, Un yadiel menthol 02 PRN, ity of (DERMOPLAST 10:49: [place] 20-0.5 % 33 on [facility] Medical topical 11/15/21 at Branch spray 0549, Until Discontinu ed, Routine, Perineum discomfort FENTanyl PF 0 2021- No Epidural, Univers (SUBLIMAZE 11-15 ONCE INTRA it y of (PF)) 09:12: 11:53 PROCEDURE, [place] injection 00 :57 Starting Medica l on [facility] Branch 11/15/21 at 0412, Until [place] 11/15/21 at 0653, Routine, Intra-op bupivacaine 0 2021- No Epidural, Univers (preserv 11-15 ONCE INTRA ity of free) 09:12: 11:53 PROCEDURE, [place] (SENSORCAIN 00 :57 Starting Medi nikia E MPF) 0.25 on [place] Branch % (2.5 11/15/21 at mg/mL) 0412, injection Until [place] 11/15/21 at 0653, Routine, Intra-op PNV Yes Take by Univers no.95/edgar 11-15 mouth. ity of us 05:25: [place] fum/folic 07 Medical ac Branch ( ORAL) PIB 2021- No Epidural, Univers fentaNYL-ro 11-15 ONCE INTRA i ty of pivacaine 2 03:11: 11:53 PROCEDURE, [place] mcg/mL-0.1 00 :57 Starting Medic al % (PF) in on Fri Branch NS 200 mL 11/14/21 at epidural 2211, infusion Until [place] RTU 11/15/21 at 0653, Routine, Intra-op PIB 2021- No Epidural, Univers fentaNYL-ro 11-15 ONCE INTRA i ty of pivacaine 2 02:58: 11:53 PROCEDURE, [place] mcg/mL-0.1 00 :57 Starting Medic al % (PF) in on Fri Branch NS 200 mL 11/14/21 at epidural 2158, infusion Until [place] RTU 11/15/21 at 0653, Routine, Intra-op lidocaine-e 2021- No Epidural, Univers pinephrine 11-15 ONCE INTRA it y of (XYLOCAINE 02:44: 11:53 PROCEDURE, [place] W/EPINEPHRI 00 :57 Starting Medi nikia NE) 1.5 on Fri Branch %-1:200,000 11/14/21 at injection 2144, Until [place] 11/15/21 at 0653, Routine, Intra-op D5W-LR IV 2021- No 1000mL at 125 Uni vers infusion 11-14 mL/hr, IV ity o f 1,000 mL 18:15: 10:49 Infusion, [place] as 00 :35 CONTINUOUS Medical , Starting Branch on Fri11/14/21 at 1315, Until [place] 11/15/21 at 0549, Routine FENTanyl PF 2021- No 100ug 100 mcg, Univers (SUBLIMAZE 11-14 Slow IV ity o f (PF)) 18:08: 10:49 Push, [place] injection 08 :35 Q1HPRN, Medical 100 mcg Starting Branch on Fri11/14/21 at 1308, Until [place] 11/15/21 at 0549, Routine, contractio n pain without an epidural and SVE < 8 cm and Cat I strip oxytocin 2021- No 1mU/min at 1-40 Un yadiel (PITOCIN) 11-14 06-02 mL/hr, IV ity of 30 units in 18:08: 10:49 Infusion, [place] NS 500 mL 08 :35 TITRATE, Medica l IV infusion Starting Bran ch on Fri11/14/21 at 1308, Until [place] 11/15/21 at 0549, IRINA lactated 2021- No 500mL at 999 Unive rs ringers IV 11-14 06-02 mL/hr, 500 it y of infusion 18:08: 02:00 mL, IV [place] 500 mL 08 :00 Infusion, Medical PRN - SEE Branch INSTRUCTIO NS, 1 dose, Starting on Fri11/14/21 at 1308, Until Discontinu ed, Routine PNV Yes Take by Univers no.95/edgar 11-14 mouth. ity of us 17:20: [place] fum/folic 10 Medical ac Branch ( ORAL) ascorbic Yes [id number] 500mg Take 1 U nivers acid, 4-26 tablet by ity of vitamin C, 00:00: mouth [place] 500 mg 00 daily. Medical tablet Branch ascorbic Yes [id number] 500mg Take 1 U nivers acid, 4-26 tablet by ity of vitamin C, 00:00: mouth [place] 500 mg 00 daily. Medical tablet Branch ferrous Yes [id number] 325mg Take 1 Un yadiel sulfate 4-26 tablet by ity of (IRON, 00:00: mouth 2 [place] FERROUS 00 (two) Medical SULFATE,) times Branch 325 mg (65 daily. mg iron) tablet docusate Yes [id number] 100mg Take 1 U nivers (COLACE) 4-26 capsule by ity o f 100 mg 00:00: mouth once [place] capsule 00 daily as Medical needed for Branch Constipati on. ascorbic Yes [id number] 500mg Take 1 U nivers acid, 4-26 tablet by ity of vitamin C, 00:00: mouth [place] 500 mg 00 daily. Medical tablet Branch ferrous Yes [id number] 325mg Take 1 Un yadiel sulfate 4-26 tablet by ity of (IRON, 00:00: mouth 2 [place] FERROUS 00 (two) Medical SULFATE,) times Branch 325 mg (65 daily. mg iron) tablet docusate Yes [id number] 100mg Take 1 U nivers (COLACE) 4-26 capsule by ity o f 100 mg 00:00: mouth once [place] capsule 00 daily as Medical needed for Branch Constipati on. ascorbic Yes [id number] 500mg Take 1 U nivers acid, 4-26 tablet by ity of vitamin C, 00:00: mouth [place] 500 mg 00 daily. Medical tablet Branch ascorbic Yes [id number] 500mg Take 1 U nivers acid, 4-26 tablet by ity of vitamin C, 00:00: mouth [place] 500 mg 00 daily. Medical tablet Branch ferrous 2021- No [id number] 325mg Take 1 U nivers sulfate 4-26 06-03 tablet by ity of (IRON, 00:00: 00:00 mouth 2 [place] FERROUS 00 :00 (two) Medical SULFATE,) times Branch 325 mg (65 daily. mg iron) tablet docusate 2021- No [id number] 100mg Take 1 Univers (COLACE) 4-26 06-03 capsule by ity of 100 mg 00:00: 00:00 mouth [place] capsule 00 :00 daily as Medical needed for Branch Constipati on. ondansetron Yes [id number] 4mg Take 1 Univers 4 mg 3-06 tablet by ity of disintegrat 00:00: mouth [place] ing tablet 00 every 8 Medica l (eight) Branch hours as needed for Nausea and Vomiting (N/V). ondansetron Yes [id number] 4mg Take 1 Univers 4 mg 3-06 tablet by ity of disintegrat 00:00: mouth [place] ing tablet 00 every 8 Medica l (eight) Branch hours as needed for Nausea and Vomiting (N/V). ondansetron 2021- No [id number] 4mg Take 1 Univers 4 mg 3-06 06-03 tablet by ity of disintegrat 00:00: 00:00 [place] ing tablet 00 :00 every 8 Medica l (eight) Branch hours as needed for Nausea and Vomiting (N/V). buPROPion 2021-0 Yes [id number] 75mg Take 1 U nivers 75 mg 2-22 tablet by ity of tablet 00:00: mouth 2 (two) Medical times Branch daily. buPROPion 2021-0 Yes [id number] 75mg Take 1 U nivers 75 mg 2-22 tablet by ity of tablet 00:00: mouth 2 (two) Medical times Branch daily. buPROPion 2021-0 Yes [id number] 75mg Take 1 U nivers 75 mg 2-22 tablet by ity of tablet 00:00: mouth 2 (two) Medical times Branch daily. buPROPion 2021-0 Yes [id number] 75mg Take 1 U nivers 75 mg 2-22 tablet by ity of tablet 00:00: mouth 2 (two) Medical times Branch daily. buPROPion 2021-0 Yes [id number] 75mg Take 1 U nivers 75 mg 2-22 tablet by ity of tablet 00:00: mouth 2 (two) Medical times Branch daily. Nitrofurant 2020-06- No [id number] 100mg Take 1 Univers oin&Nit. 2-02 12-10 capsule by ity of Macrocryst 00:00: 05:59 mouth 2 [place] as (MACROBID) 00 :00 (two) Medical 100 mg times Branch capsule daily for 7 days. Nitrofurant 2020-06- No [id number] 100mg Take 1 Univers oin&Nit. 2-02 12-10 capsule by ity of Macrocryst 00:00: 05:59 mouth 2 [place] (MACROBID) 00 :00 (two) Medical 100 mg times Branch capsule daily for 7 days. metroNIDAZO 2020-06 Yes [id number] 500mg Take 1 Univers LE 500 mg 2-01 tablet by ity o f tablet 00:00: mouth [place] 00 every 12 Medical (twelve) Branch hours. metroNIDAZO 2020-06 Yes [id number] 500mg Take 1 Univers LE 500 mg 2-01 tablet by ity o f tablet 00:00: mouth [place] 00 every 12 Medical (twelve) Branch hours. metroNIDAZO 2020-06 Yes [id number] 500mg Take 1 Univers LE 500 mg 2-01 tablet by ity o f tablet 00:00: mouth [place] 00 every 12 Medical (twelve) Branch hours. metroNIDAZO 2020-06 Yes [id number] 500mg Take 1 Univers LE 500 mg 2-01 tablet by ity o f tablet 00:00: mouth [place] 00 every 12 Medical (twelve) Branch hours. PNV 2020-06 Yes Take by Univers no.95/edgar 1-29 mouth. ity of us 10:11: [place] fum/folic 13 Medical ac Branch ( ORAL) PNV 2020-06 Yes Take by Univers no.95/edgar -29 mouth. ity of us 10:11: [place] fum/folic 13 Medical ac Branch ( ORAL) PNV 2020-06 Yes Take by Univers no.95/edgar -29 mouth. ity of us 10:11: [place] fum/folic 13 Medical ac Branch ( ORAL) PNV 2020-06 Yes Take by Univers no.95/edgar -29 mouth. ity of us 10:11: [place] fum/folic 13 Medical ac Branch ( ORAL) PNV 2020-06 Yes Take by Univers no.95/edgar -29 mouth. ity of us 10:11: [place] fum/folic 13 Medical ac Branch ( ORAL) PNV 2020-06 Yes Take by Univers no.95/edgar -29 mouth. ity of us 10:11: [place] fum/folic 13 Medical ac Branch ( ORAL) PNV 2020-06 Yes [id number] Take 1 Univers 102-iron-fo 1-29 TAB-CAP/M2 it y of late-dha 00:00: by mouth [place] (VITAFOL FE 00 daily. Medica l PLUS) 90 mg Branch iron- 1 mg-200 mg Cap PNV 2020-06 Yes [id number] Take 1 Univers 102-iron-fo 1-29 TAB-CAP/M2 it y of late-dha 00:00: by mouth [place] (VITAFOL FE 00 daily. Medica l PLUS) 90 mg Branch iron- 1 mg-200 mg Cap PNV 2020-06 Yes [id number] Take 1 Univers 102-iron-fo 1-29 TAB-CAP/M2 it y of late-dha 00:00: by mouth [place] (VITAFOL FE 00 daily. Medica l PLUS) 90 mg Branch iron- 1 mg-200 mg Cap PNV 2020-06 Yes [id number] Take 1 Univers 102-iron-fo 1-29 TAB-CAP/M2 it y of late-dha 00:00: by mouth [place] (VITAFOL FE 00 daily. Medica l PLUS) 90 mg Branch iron- 1 mg-200 mg Cap PNV 2020-06 Yes [id number] Take 1 Univers 102-iron-fo 1-29 TAB-CAP/M2 it y of late-dha 00:00: by mouth [place] (VITAFOL FE 00 daily. Medica l PLUS) 90 mg Branch iron- 1 mg-200 mg Cap Immunizations Ordered Filled Immunization Date Status Comments [facility] e Immunization Name Name Varicella 2021-11-16 Completed University of (varivax)(chicken 00:00:00 [place] M edical pox) Branch Varicella 2021-11-16 Completed University of (varivax)(chicken 00:00:00 [place] M edical pox) Branch TDAP 2021-08-28 Completed University of 00:00:00 [facility] TDAP 2021-08-28 Completed University of 00:00:00 [facility] TDAP 2021-08-28 Completed University of 00:00:00 [facility] TDAP 2021-08-28 Completed University of 00:00:00 [facility] TDAP 2021-08-28 Completed University of 00:00:00 [facility] Influenza Virus 2021-05-14 Completed Universit y of Vaccine Quad IM, 00:00:00 [facility] dical Preserv and ABX Branch Free 6 MO-64 YRS Influenza Virus 2021-05-14 Completed Universit y of Vaccine Quad IM, 00:00:00 [place] Me dical Preserv and ABX Branch Free 6 MO-64 YRS Influenza Virus 2021-05-14 Completed Universit y of Vaccine Quad IM, 00:00:00 [place] Me dical Preserv and ABX Branch Free 6 MO-64 YRS Influenza Virus 2021-05-14 Completed Universit y of Vaccine Quad IM, 00:00:00 [place] Me dical Preserv and ABX Branch Free 6 MO-64 YRS Influenza Virus 2021-05-14 Completed Universit y of Vaccine Quad IM, 00:00:00 [place] Me dical Preserv and ABX Branch Free 6 MO-64 YRS Influenza Virus 2021-05-14 Completed Universit y of Vaccine Quad IM, 00:00:00 [place] Me dical Preserv and ABX Branch Free 6 MO-64 YRS Influenza Virus 2021-05-14 Completed Universit y of Vaccine Quad IM, 00:00:00 [place] Me dical Preserv and ABX Branch Free 6 MO-64 YRS Influenza Virus 2021-05-14 Completed Universit y of Vaccine Quad IM, 00:00:00 [place] Me dical Preserv and ABX Branch Free 6 MO-64 YRS Influenza Virus 2021-05-14 Completed Universit y of Vaccine Quad IM, 00:00:00 [place] Me dical Preserv and ABX Branch Free 6 MO-64 YRS Influenza Virus 2021-05-14 Completed Universit y of Vaccine Quad IM, 00:00:00 [place] Me dical Preserv and ABX Branch Free 6 MO-64 YRS Influenza Virus 2021-05-14 Completed Universit y of Vaccine Quad IM, 00:00:00 [place] Me dical Preserv and ABX Branch Free 6 MO-64 YRS Vital Signs Vital Name Observation Time Observation Value Comments Source Systolic blood 2021-12-20 21:02:00 97 mm[Hg] Univer [facility]ity of [facility] Diastolic blood 2021-12-20 21:02:00 67 [facility]Hg[facility] 2021-12-20 21:02:00 90 /min [facility] Body temperature 2021-12-20 21:02:00 36.89 Amanda [facility] Respiratory rate 2021-12-20 21:02:00 18 /min [facility] Body weight 2021-12-20 21:02:00 61.236 kg [facility] BMI 2021-12-20 21:02:00 21.79 kg/m2 [facility] Systolic blood 2021-11-16 12:27:00 120 mm[Hg] Univer sity of [facility] Diastolic blood 2021-11-16 12:27:00 75 mm[Hg] Unive rsity of [facility] Heart rate 2021-11-16 12:27:00 57 /min [facility] Body temperature 2021-11-16 12:27:00 36.83 Amanda [facility] Respiratory rate 2021-11-16 12:27:00 18 /min [facility] Oxygen saturation in 2021-11-16 08:44:00 100 /min [facility] Arterial blood by [facility] Pulse oximetry Branch Systolic blood 2021-05-14 16:03:00 111 mm[Hg] [facility] pressure [facility] Diastolic blood 2021-05-14 16:03:00 70 mm[Hg] [facility] Heart rate 2021-05-14 16:03:00 63 /min [facility] Body temperature 2021-05-14 16:03:00 36.83 Amanda [facility] Body height 2021-05-14 16:03:00 167.6 cm [facility] Body weight 2021-05-14 16:03:00 57.607 kg [facility] BMI 2021-05-14 16:03:00 20.50 kg/m2 [facility] Procedures Procedure Date / Time Performed Performing Clinician [facility] e CBC WITH DIFF 2021-11-16 08:35:00 Silvio [facility] CENTRAL NEURAXIAL 2021-11-15 03:05:35 Neville Canales [facility] HOSPITAL ADMISSION 2021-11-14 05:01:00 Doctor Unassigned, No Uni versity of [facility] RHO (D) IMMUNE 2021-11-13 20:06:00 Nicole Anguiano [facility] <14 WEEKS US 2021-05-14 19:00:49 Nicole Anguiano [facility] CBC WITH DIFF 2021-05-14 18:13:00 Nicole Anguiano [facility] FLU VACC ([id number]), 2021-05-14 16:46:34 Nicole Anguiano [facility] 2-64 YRS, .5ML, IM, Medical Bran ch QUAD (FLUCELVAX) POCT TEST 2021-05-14 00:00:00 Nicole Anguiano [facility] POCT URINALYSIS W/O 2021-05-14 00:00:00 Nicole Anguiano [facility] [place] SPECIFIC GRAVITY [facility] Branch Encounters Start End Encounter Admission Attending Care Care Encounter Source Date/Time Date/Time Type Type Clinicians Facility Department ID 2021-08-18 Outpatient P [facility] [id number] Univers 23:26:12 ity of [facility] 2021-04-17 Emergency [facility] [id number] Univers 07:23:02 ity of [facility] 2021-04-16 Emergency [facility] [id number] Univers 22:26:26 ity of [facility] 2021-04-13 Emergency [facility] [id number] Univers 14:34:48 ity of [facility] 2021-04-12 Emergency [facility] [id number] Univers 12:54:49 ity of [facility] 2022-01-29 2022-01-29 Outpatient R NICOLE ANGUIANO [facility] 79002 [id number] Univers 14:30:00 14:30:00 ity of [facility] 2021-12-20 2021-12-20 Outpatient R NICOLE ANGUIANO [facility] 56051 [id number] Univers 15:45:00 16:38:32 ity of [facility] 2021-12-20 2021-12-20 Routine Nicole Anguiano [facility] 1.2.501.720 [id number] 7172 Univers 15:45:00 16:38:32 Cam [place] 350.1.13.10 ity of Visit [place] 4.2.7.2.686 [facility] s [facility] [phone] Md dical NAL [address] BUILDING 2021-11-14 2021-11-16 [facility] Nicole Anguiano [facility] 1.2.840.114 [id number] Univers 11:52:00 13:00:00 Encounter Cam [place] 350.1.13.10 [facility] 4.2.7.2.[place] [phone] [facility] [address] 2021-11-14 2021-11-15 [facility] 1.2.840.114 [id number] Univers 21:39:00 06:49:00 Event Neville Shukla [place] 350.1.13.10 ity of [place].7.2.[place] [phone] [facility] 083 [place] 2021-11-14 2021-11-14 Anesthesia Channing Andrade [facility] 1.2.8 40.114 [id number] Univers 17:27:18 17:27:18 Event Neville CanalesMULU 350.1.13. 10 ity of [place] 4.2.7.2.686 [place] [id number] [place] [address] [place] 2021-11-14 2021-11-14 Inpatient P NICOLE ANGUIANO [facility] GATO [id number] Univers 11:52:00 11:52:00 ity of [facility] 2021-11-14 2021-11-14 Orders Doctor JANICE 1.2.840.114 [id number] Univers 00:00:00 00:00:00 Only Unassigned, ANUSHA 350.1.13.10 ity of [place] [facility] 4.2.7.2.686 Lucio as [phone] [facility] [address] 2021-11-13 2021-11-13 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 Gregoria, Adc Lab Main [facility] 1.2.8 40.114 [id number] Univers 14:45:00 15:00:00 Visit Nicole Anguiano 350.1.13.10 ity of [place] [phone] Md dical NAL 353 [facility] 2021-11-13 2021-11-13 Outpatient R NICOLE ANGUIANO [facility] 04789 [id number] Univers 14:45:00 14:45:00 ity of [facility] 2021-11-13 2021-11-13 Outpatient R NICOLE ANGUIANO [facility] 30736 [id number] Univers 14:00:00 14:22:53 ity of [facility] 2021-11-13 2021-11-13 Routine Silvio Nicole [facility] 1.2.145.442 [id number] [id number] Univers 14:00:00 14:22:53 Dany HERNANDEZ 350.1.13.10 ity of Visit [place].2.[place] [id number] Md dic[address] 2021-11-13 2021-11-13 Outpatient R SILVIO NICOLE [facility] GATO 48327 [id number] Univers 14:00:00 14:22:53 ity of [facility] 2021-11-13 2021-11-13 Orders Doctor JNAICE 1.2.840.114 [id number] Univers 00:00:00 00:00:00 Only Unassigned, ANUSHA 350.1.13.10 ity of [place] [facility] 4.2.7.2.686 Lucio as [phone] [address] 2021-11-05 2021-11-05 Outpatient R ANGUIANONICOLE [facility] 98516 [id number] Univers 10:00:00 10:33:00 ity of [facility] 2021-11-05 2021-11-05 Routine Nicole Anguiano [facility] 1.2.959.797 [id number] 4264 Univers 10:00:00 10:33:00 Cam [place] 350.1.13.10 ity of Visit [place] 4.[place].7.2.[place] [phone] Md dic[address] 2021-10-31 2021-10-31 Telephone Nicole Anguiano [facility] 1.2.840.114 [id number] Univers 00:00:00 00:00:00 Cam DAVID 350.1.13.10 i ty of [place] 4.[place].7.2.[place] [phone] Md dic[address] 2021-10-29 2021-10-29 Outpatient R LORENA [facility] 25711 [id number] Univers 10:15:00 10:40:49 DAVIN ity [facility] 2021-10-29 2021-10-29 Routine Lorena [facility] 1.2.551.598 [id number] 7082 Univers 10:15:00 10:40:49 Davin HERNANDEZ 350.1.13.10 ity of Visit [place] 4.[place].7.2.[place] [id number] Md dic[address] 2021-10-22 2021-10-22 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 2, Adc Lab [facility] 1.2.840.114 [id number] Univers 16:15:00 16:30:00 Visit Nicole Anguiano DAVID 350.1.13.10 ity of [place] 4.[place].7.2.[place] [phone] [facility] 353 [facility] 2021-10-22 2021-10-22 Outpatient R ANGUIANO NICOLE [facility] 03002 [id number] Univers 15:15:00 16:17:44 ity of [facility] 2021-10-22 2021-10-22 Routine Anguiano [facility] 1.2.338.644 [id number] 0547 Univers 15:15:00 16:17:44 Cam DAVID 350.1.13.10 ity of Visit [place] 4.2.7.2.686 [place] [id number] [facility] 134 [facility] 2021-10-22 2021-10-22 Outpatient R SILVIO NICOLE [facility] 51573 [id number] Univers 15:15:00 15:15:00 ity of [facility] 2021-10-22 2021-10-22 Orders Doctor JANICE 1.2.840.114 [id number] Univers 00:00:00 00:00:00 Only Unassigned, ANUSHA 350.1.13.10 ity of [place] [facility] 4.2.7.2.686 Lucio as [phone] [address] 2021-10-10 2021-10-10 Case Lorena [facility] 1.2.961.907 [id number] [id number] Univers 00:00:00 00:00:00 Management Davin HERNANDEZ 350.1.13.10 ity of [place] 4.[place].7.2.[place] [phone] [facility] 134 [facility] 2021-10-09 2021-10-09 Outpatient R SILVIO NICOLE [facility] 07540 [id number] Univers 15:45:00 16:26:43 ity of [facility] 2021-10-09 2021-10-09 [facility] 1.2.813.756 [id number] 2233 Univers 15:45:00 16:26:43 Cam [place] 350.1.13.10 ity of Visit [place].7.2.[place] [phone] Md dical [address] 2021-09-25 2021-09-25 Outpatient R LORENA [facility] 74875 [id number] Univers 11:30:00 12:08:19 DAVIN ity of [facility] 2021-09-25 2021-09-25 Routine Lorena [facility] 1.2.052.206 [id number] 5955 Univers 11:30:00 12:08:19 Davin HERNANDEZ 350.1.13.10 ity of Visit [place].2.[place] [phone] [address] 2021-09-18 2021-09-18 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 Ultrasound, [facility] 1. .840.114 [id number] Univers 09:45:00 10:47:31 Visit Bessy Ryan 350.1 .13.10 ity of [place] 4.[place].7.2.[place] [phone] [address] 2021-09-18 2021-09-18 Outpatient P ALEXANDRE [facility] [id number] Univers 09:45:00 09:45:00 KARINA it y of [place] DOHERTY [facility] 2021-09-13 2021-09-13 Case JONNY Carrillo 1.2.498.612 [id number] Univers 00:00:00 00:00:00 Management Davin PEDIATRIC 350.1.13.10 [place]y of [place]2.7.2.686 [place] [phone] [place] [address] [address] CARE CLINIC 2021-09-12 2021-09-12 Outpatient R NICOLE ANGUIANO [facility] 59218 [id number] Univers 16:00:00 16:44:09 ity of [facility] 2021-09-12 2021-09-12 Routine Nicole Anguiano [facility] 1.2.711.713 [id number] Univers 16:00:00 16:44:09 Dany HERNANDEZ 350.1.13.10 ity of Visit [place].7.2.[place] [phone] Md dical NAL 134 [facility] 2021-08-29 2021-08-29 Telephone Lorena IDMAHOGANY 1.2.840.114 [id number] Univers 00:00:00 00:00:00 Davin HERNANDEZ 350.1.13.10 i ty of [place].7.2.[place] [id number] Md dical NAL 134 [facility] 2021-08-28 2021-08-28 Outpatient R NICOLE ANGUIANO [facility] 02169 [id number] Univers 14:00:00 14:51:22 ity of [facility] 2021-08-28 2021-08-28 Routine Davin Carrillo [facility] 1.2.840.11 [id number] Univers 14:00:00 14:51:22 Nicole Anguiano 350.1.13.10 ity of Visit [place].7.2.[place] [phone] Md dical NAL 134 [facility] 2021-08-28 2021-08-28 [employer]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 114 [id number] Univers 19:30:00 23:00:00 Encounter Gabriela Serrano 350.1.13.10 ity of [place].7.2.[place] [id number] [address] 2021-08-18 2021-08-18 Telephone Nicole Anguiano [facility] 1.2.840.114 [id number] Univers 00:00:00 00:00:00 Cam DAVID 350.1.13.10 i ty of [place].7.2.[place] [phone] Md dical NAL 134 [facility] 2021-08-15 2021-08-15 Orders Doctor JANICE 1.2.840.114 [id number] Univers 00:00:00 00:00:00 Only Unassigned, ANUSHA 350.1.13.10 ity of [place] [facility] 4.2.7.2.686 Lucio as [id number] [address] 2021-08-10 2021-08-10 Outpatient R HILL [facility] [id number] Univers 08:55:57 23:59:00 DORYS monsivais o f [facility] 2021-08-10 2021-08-10 Tr [facility] 1.2.840.114 [id number] Univers 00:00:00 00:00:00 (Out) Dorys HERNANDEZ 350.1.13.10 ity of [place].2.[place] [id number] Md dical NAL 059 [facility] 2021-08-08 2021-08-08 Telephone Nicole Anguiano [facility] 1.2.840.114 [id number] Univers 00:00:00 00:00:00 Dany HERNANDEZ 350.1.13.10 i ty of [place]2.[place] [phone] Md dical NAL 134 [facility] 2021-08-07 2021-08-07 Outpatient R LORENA [facility] 19957 22243 Univers 11:00:00 11:24:41 DAVIN monsivais of [facility] 2021-08-07 2021-08-07 Routine Lorena [facility] 1.2.204.177 [id number] 4623 Univers 11:00:00 11:24:41 Davin HERNANDEZ 350.1.13.10 ity of Visit [place].2.[place] [phone] Md dical NAL 134 [facility] 2021-08-06 2021-08-06 [facility] [id number] Univers 14:00:00 15:03:06 MEIRROCAEL loi o f [facility] 2021-07-19 2021-07-19 Case [facility] 1.2.735.091 [id number] 2220 Univers 00:00:00 00:00:00 Management Davinmarylin HERNANDEZ 350.1.13.10 ity of [place].2.[place] [id number] [address] 2021-07-18 2021-07-18 [facility] 1.2.967.722 [id number] 8186 Univers 00:00:00 00:00:00 Management Davinmarylin HERNANDEZ 350.1.13.10 ity of [place].2.[place] [id number] [address] 2021-07-17 2021-07-17 Outpatient [facility] 30961 [id number] Univers 14:45:00 15:09:57 DAVIN monsivais [facility] 2021-07-17 2021-07-17 [facility] ..840.114 90 [id number] Univers 14:45:00 15:09:57 Davin ANTHONY 350.1.13.10 i ty of [place].2.[place] [id number] [address] 2021-07-16 2021-07-16 Telephone Nicole Anguiano [facility] .840.114 90 [id number] Univers 00:00:00 00:00:00 Cam HEALTH 350.1.13.10 it y of [place] 4.2.7.2.686 Lucio as ANIBAL?BLEA [phone] [address] 2021-07-11 2021-07-11 Telephone Nicole Anguiano [facility] 1.2.840.114 [id number] Univers 00:00:00 00:00:00 Cam DAVID 350.1.13.10 i ty of [place].2.[place] [phone] Md dical NAL 134 [facility] 2021-07-10 2021-07-10 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 Ultrasound, Adc [facility] 1.2 .840.114 [id number] Univers 10:15:00 11:15:00 Visit Bessy Ryan DAVID 350.1 .13.10 ity of [place].2.[place] [phone] Md dical NAL [address] [place] [address] 2021-07-10 2021-07-10 Outpatient P ALEXANDRE [facility] [id number] Univers 10:15:00 10:15:00 LADONNADENNY it y of BESSY Shukla [facility] 2021-07-09 2021-07-09 Outpatient R NICOLE ANGUIANO [facility] 35788 [id number] Univers 11:15:00 11:53:12 ity [facility] 2021-07-09 2021-07-09 Routine Nicole Anguiano [facility] 1.2.147.139 [id number] 2025 Univers 11:15:00 11:53:12 Dany HERNANDEZ 350.1.13.10 ity of [facility] 4.2.7.2.[place] [id number] Md dical NAL [address] [place] [address] 2021-06-11 2021-06-11 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 1, Adc Lab [facility] 1.2.840.114 [id number] Univers 11:30:00 11:45:00 Visit Davin Carrillo 350.1.13.10 ity [facility] 4.2.7.2.[place] [id number] [address] 2021-06-11 2021-06-11 Outpatient R LORENA [facility] 08239 [id number] Univers 11:00:00 11:28:26 DAVIN monsivais [facility] 2021-06-11 2021-06-11 Routine Lorena [facility] 1.2.900.543 [id number] 7567 Univers 11:00:00 11:15:00 Davin HERNANDEZ 350.1.13.10 ity of [facility] 4.2.7.2.[place] [id number] Md dical NAL 134 [facility] 2021-06-11 2021-06-11 Orders Doctor JANICE 1.2.840.114 [id number] Univers 00:00:00 00:00:00 Only Unassigned, ANUSHA 350.1.13.10 ity of [place] [facility] 4.2.7.2.686 Lucio as [id number] [address] 2021-05-29 2021-05-29 Case Nicole Anguiano [facility] 1.2.779.564 3739 [id number] Univers 00:00:00 00:00:00 Management Cam [place] 350.1.13.10 ity of [place]2.[place] [phone] Md dical NAL 134 [facility] 2021-05-25 2021-05-25 Telephone Nicole Anguiano [facility] 1.2.840.114 [id number] Univers 00:00:00 00:00:00 Cam [place] 350.1.13.10 i ty of [place].2.[place] [phone] Md dical NAL 134 [facility] 2021-05-17 2021-05-17 Telephone Nicole Anguiano [facility] 1.2.840.114 [id number] Univers 00:00:00 00:00:00 Cam [place] 350.1.13.10 i ty of [place].2.[place] [id number] Md dical NAL 134 [facility] 2021-05-17 2021-05-17 Case Nicole Anguiano [facility] 1.2.941.175 3619 [id number] Univers 00:00:00 00:00:00 Management Cam [place] 350.1.13.10 ity of [place].2.[place] [id number] Md dical NAL 134 [facility] 2021-05-16 2021-05-16 Case JONNY Carrillo 1.2.890.274 [id number] 0948 Univers 00:00:00 00:00:00 Management Davin PEDIATRIC 350.1.13.10 [place] of [place] [id number] [facility] PRIMARY [address] CARE CL[facility] 2021-05-14 2021-05-14 [employer]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 Denise Kinney Lab Main [facility] 1.2.8 40.114 [id number] Univers 11:32:20 11:47:20 Visit Silvio Nicole Dany HERNANDEZ 350.1.13.10 ity of [place] 4.[place].7.2.[place] [id number] Md dical NAL 353 [facility] 2021-05-14 2021-05-14 Outpatient R NICOLE ANGUIANO [facility] 33891 [id number] Univers 10:00:00 11:09:57 ity of [facility] 2021-05-14 2021-05-14 Outpatient R SILVIO NICOLE [facility] 84010 [id number] Univers 10:00:00 11:09:57 ity of [facility] 2021-05-14 2021-05-14 Initial Silvio [facility] 1.2.229.706 [id number] 8379 Univers 09:51:44 11:09:57 Dany HERNANDEZ 350.1.13.10 ity of [place].2.[place] [id number] Md dical NAL 134 [facility] 2021-04-24 2021-04-24 Emergency X JOEY, [facility] ERT [id number] Univers 11:58:00 15:33:00 KATYE ity of [facility] 2021-04-24 2021-04-24 Emergency [facility] 1.2.257.796 [id number] [id number] Univers 11:58:00 15:33:00 Regina HERNANDEZ 350.1.13.10 i ty of [place].2.[place] [id number] [facility] [address] 2021-04-24 2021-04-24 Orders Doctor JANICE 1.2.840.114 [id number] Univers 00:00:00 00:00:00 Only Unassigned, ANUSHA 350.1.13.10 ity of [place] [facility] 4.2.7.2.686 Lucio as [id number] [facility] [address] 2021-04-01 2021-04-01 Emergency García, Ryan [facility] 1.2.840. 114 [id number] Univers 12:23:00 15:53:00 Chante Kimmy Hernandez 350.1.13.10 ity of [place] 4.2.7.2.[address] [facility] [id number] [place] [address] [address] 2021-02-26 2021-02-26 Emergency Ryan Alcala [facility] 1.2. 840.114 [id number] [facility] 19:25:00 21:43:00 GeorgeKindra bruno David 350.1.13.10 ity of [place] 4.2.7.2.[address] [facility] [id number] [address] 2020-05-29 2020-05-29 Outpatient JO[facility] Z7087 [facility] 15:30:00 15:30:[id number] [facility] 2020-02-10 2020-02-10 Emergency Chante, K [facility] 1.2.840.114 [id number] [facility] 12:09:00 13:46:00 Candis Hernandez 350.1.13.10 i ty of [place] 4.2.7.2.[address] [facility] [id number] [address] 2020-02-10 2020-02-10 Emergency Kimmy Sharif [facility] 1.2.840.114 [id number] 12:09:00 13:46:00 Candis Hernandez 350.1.13.[address] [address] [place] [address] [id number] [facility] 2019-09-09 2019-09-09 Outpatient Raju_P [facility] G [id number] 020 [place] 10:11:00 10:11:00 [facility] 2019-08-20 2019-08-20 Emergency Thiago [facility] 1.2.840.114 [id number] Univers 01:23:35 01:46:00 Zoë Hernandez 350.1.13.10 ity of [place] 4.2.7.2.[address] [facility] [id number] [address] 2019-08-20 2019-08-20 [facility] 1.2.840.114 [id number] 01:23:35 01:46:00 Zoë Hernandez 350.1.13.10 [place] 4.2.7.2.686 [place] [id number] 084 Results Test Description Test Time Test Comments Results Result Comments Source CBC with Differential 2021-11-16 10:17:26 Test Item Value Reference Range Interpretation Comme nts WBC (test code = 6690-2) See_Comment H [A utomated message] The system which ge nerated this result transmit james reference range: 4.30 - 1 1.10 10*3/?L. The reference r zabrina was not used to interpr et this result as normal/abnor mal. RBC (test code = 789-8) See_Comment L [Au tomated message] The system which ge nerated this result transmit james reference range: 3.93 - 5 .25 10*6/?L. The reference r zabrina was not used to interpr et this result as normal/abnor mal. HGB (test code = 718-7) 9.6 g/dL 11.6-15.0 L HCT (test code = 4544-3) 28.6 % 35.7-45.2 L MCV (test code = 787-2) 94.4 fL 80.6-95.5 MCH (test code = 785-6) 31.7 pg 25.9-32.8 MCHC (test code = 786-4) 33.6 g/dL 31.6-35.1 RDW-SD (test code = 33565-5) 45.1 fL 39.0-49.9 RDW-CV (test code = 788-0) 13.1 % 12.0-15.5 PLT (test code = 777-3) See_Comment L [Au tomated message] The system which ge nerated this result transmit james reference range: 166 - 35 8 10*3/?L. The reference range was not used to interpret th is result as normal/abnormal . MPV (test code = 10975-1) 10.8 fL 9.5-12.9 NRBC/100 WBC (test code = See_Comment [ Automated message] The [id number]) system which ge nerated this result transmit james reference range: 0.0 - 10 .0 /100 WBCs. The reference r zabrina was not used to interpr et this result as normal/abnor mal. NRBC x10^3 (test code = <0.01 See_Comment [Au tomated message] The [id number]) system which ge nerated this result transmit james reference range: 10*3/?L. The reference range was not u sed to interpret this result as normal/abnormal . GRAN MAT (NEUT) % (test code 75.6 % = 770-8) IMM GRAN % (test code = 0.60 % [id number]) LYMPH % (test code = 736-9) 16.8 % MONO % (test code = 5905-5) 6.0 % EOS % (test code = 713-8) 0.6 % BASO % (test code = 706-2) 0.4 % GRAN MAT x10^3(ANC) (test 9.48 10*3/uL 1.88-7.09 H code = 6668977690) IMM GRAN x10^3 (test code = 0.08 10*3/uL 0.00-0.06 H [id number]) LYMPH x10^3 (test code = 2.10 10*3/uL 1.32-3.29 731-0) MONO x10^3 (test code = 0.75 10*3/uL 0.33-0.92 742-7) EOS x10^3 (test code = 0.07 10*3/uL 0.03-0.39 711-2) BASO x10^3 (test code = 0.05 10*3/uL 0.01-0.07 704-7) Lab Interpretation (test Abnormal code = 34908-5) [facility] IMMUNE [id number] 13:54:49 Test Item Value Reference Range Interpretation Comments RHIG CANDIDATE? No- see comment Patient i s not a (test code = candidate for R hIg- 5055) Patient is Rh Positive.Perfor med at [facility] Laboratory Services - [facility] Blood [id number] [place] [id number] Free: [phone] A No. [id number] [facility] WITH [id number] 18:24:18 Test Item Value Reference Range Interpretation Comments WBC (test code = See_Comment [Automated 6690-2) message] The sy stem which generated this result transmitted reference range : 4.30 - 11.10 10*3/?L. The reference range was not used to interpret this result as normal/abnormal . RBC (test code = See_Comment L [Automated 789-8) message] The sy stem which generated this result transmitted reference range : 3.93 - 5.25 10*6/?L. The reference range was not used to interpret this result as normal/abnormal . HGB (test code = 11.8 g/dL 11.6-15.0 718-7) HCT (test code = 36.1 % 35.7-45.2 4544-3) MCV (test code = 94.0 fL 80.6-95.5 787-2) MCH (test code = 30.7 pg 25.9-32.8 785-6) MCHC (test code = 32.7 g/dL 31.6-35.1 786-4) RDW-SD (test code = 49.7 fL 39.0-49.9 82139-6) RDW-CV (test code = 14.3 % 12.0-15.5 788-0) PLT (test code = See_Comment [Automated 777-3) message] The sy stem which generated this result transmitted reference range : 166 - 358 10*3/ ?L. The reference r zabrina was not used to interpret this result as normal/abnormal . MPV (test code = 9.6 fL 9.5-12.9 87473-0) NRBC/100 WBC (test See_Comment [Automat ed code = [id number]) message] The system which generated this result transmitted reference range : 0.0 - 10.0 /100 WBCs. The refer ence range was not u sed to interpret th is result as normal/abnormal . NRBC x10^3 (test code <0.01 See_Comment [Auto mated = [id number]) message] The s ystem which generated this result transmitted reference range : 10*3/?L. The reference range was not used to interpret this result as normal/abnormal . GRAN MAT (NEUT) % 77.0 % (test code = 770-8) IMM GRAN % (test code 0.50 % = [id number]) LYMPH % (test code = 18.2 % 736-9) MONO % (test code = 3.4 % 5905-5) EOS % (test code = 0.4 % 713-8) BASO % (test code = 0.5 % 706-2) GRAN MAT x10^3(ANC) 6.99 10*3/uL 1.88-7.09 (test code = 4086418592) IMM GRAN x10^3 (test 0.05 10*3/uL 0.00-0.06 code = 6939328249) LYMPH x10^3 (test code 1.66 10*3/uL 1.32-3.29 = 731-0) MONO x10^3 (test code 0.31 10*3/uL 0.33-0.92 L = 742-7) EOS x10^3 (test code = 0.04 10*3/uL 0.03-0.39 711-2) BASO x10^3 (test code 0.05 10*3/uL 0.01-0.07 = 704-7) Lab Interpretation Abnormal (test code = 15119-7) [facility] URINALYSIS W/O SPECIFIC [id number] 16:17:00 Test Item Value Reference Range Interpretation Comments POCT PH U (test code = 3254) n/a 5-8 POCT U LEUK EST (test code = n/a Negative - Negative 3263) POCT U NIT (test code = 3262) n/a Negative - Negative POCT U PROT (test code = 3259) negative Negative - Negative POCT U GLU (test code = 3256) negative Negative - Negative POCT U KETONE (test code = 3258) n/a Negative - Negative POCT U BLD (test code = 3257) n/a Negative - Negative [facility] [id number] 16:16:00 Test Item Value Reference Range Interpretation Comments POCT PREG (test code = 1605) Positive On board controls acceptable with C Yes Line (test code = 3574) POCT PREG LOT # (test code = 3575) POCT PREG TEST DATE (test code = 3576) [facility]- US TRANSVAGINAL NON [id number] 16:46:00 [facility] 2000 Sex: F Patient Name: CRISTIANO MARISCAL Unit No: [id number] EXAMS: CPT CODE: [id number] US TRAN[place]AGIN[place] [id number] EXAM: Pelvic ultrasound HISTORY: ENDOMETRIOSIS/VAGINAL BLEEDING TECHNIQUE: Grayscale, color flow and spectral Doppler transabdominal and transvaginal ultrasound images were obtained. COMPARISON: 11/12/2018 FINDINGS: The uterus measures 5.8 x 2.1 x 3.9 cm. Endometrial stripe measures 5 mm. The uterusis otherwise normal in appearance. The right ovary measures 2.8 x 1.9 x 3.5 cm and the left ovary measures 2.2 x 1.5 x 1.7 cm. Normal ovarian blood flow is seen bilaterally. Mild amount of free fluid is seen in the pelvic cul-de-sac. IMPRESSION: Unremarkable pelvic ultrasound. at 1646 Reported and signed by: Lencho Leo MD CC: Stella Burkett MD Technologist: Salas Mortensen, RT(R),GEOFFREY(AB); DC TV1 SN [id number] Transcrpt Date/Tm/Trnsp: 05/29/2020 (1646) [id number] Orig Print D/T: S: 05/29/2020 (4243) [facility] NAME: CRISTIANO MARISCAL [id number] [address] PHYS: [place] [address] : 2000 AGE: 20 SEX: F LOC: CHRISTIANNE PHONE #: [phone] EXAM DATE: 05/29/2020STATUS: REG REF FAX #: [phone] RADIOLOGY NO: PAGE 1 Signed Report- US PELVIS [id number] 16:46:00 [facility] : 2000 Sex: F Patient Name: CRISTIANO MARISCAL Unit No: [id number] EXAMS: CPT CODE: [id number] US PELVIS COMPLETE 15079 B2EXAM: Pelvic ultrasound HISTORY: ENDOMETRIOSIS/VAGINAL BLEEDING TECHNIQUE: Grayscale, color flow andspectral Doppler transabdominal and transvaginal ultrasound images were [...] Technologist: Salas Mortensen, RT(R),RDMS(AB) Transcrpt Date/Tm/Trnsp: 05/29/2020 (6736) [id number] Orig Print D/T: S: 05/29/2020 (0004) [facility] NAME: CRISTIANO MARISCAL [id number] PHYS: [place] [address] : 2000 AGE: 20 SEX: F LOC: CHRISTIANNE PHONE #: [phone] EXAM DATE: 05/29/2020 STATUS: REG REF FAX #: [phone] RADIOLOGY NO: PAGE 1 Signed Report- US TRANSVAGINAL NON [id number] 16:24:00 Patient Name: CRISTIANO MARISCAL Unit No: [id number] EXAMS: CPT CODE: [id number] [place] [id number] EXAMINATION: - US PELVIS COMPLETE, - US TRANSVAGINAL NON OB. LOCATION: S17. HISTORY: Endometriosis. COMPARISON: None. FINDINGS: Sonographic evaluation of the pelvis was performed transabdominally through a distended urinary bladder and transvaginally utilizing grayscale, pulse Doppler and color flow imaging. The uterus appears unremarkable in echotexture and measures 5.0 x 5.9 x 3.5 cm. Theendometrial stripe measures 4 mm in thickness. The [...] Stella Burkett MD Technologist: Salas Mortensen, RT(R),RDMS(AB); [facility] TV1 SN [id number] Transcrpt Date/Tm/Trnsp: 11/12/2018 (1624) [id number] Orig Print D/T: S: 11/12/2018 (5737) [facility] NAME: CRISTIANO MARISCAL [id number] PHYS: [place] [address] : 2000 AGE:18 SEX: F LOC: CHRISTIANNE PHONE #: [phone] EXAM DATE: 11/12/2018 STATUS: PRE CLI FAX #: [phone] RADIOLOGY NO: PAGE 1 Signed Report- US PELVIS COMPLETE 2018-11-12 16:24:00 Patient Name: CRISTIANO MARISCAL Unit No: [id number] EXAMS: CPT CODE: [id number] US PELVIS COMPLETE 95601 EXAMINATION: - US PELVIS COMPLETE, - US TRANSVAGINAL NON OB. LOCATION: S17. HISTORY: Endometriosis. COMPARISON: None. FINDINGS: Sonographic evaluation of the pelvis was performed transabdominallythrough a distended urinary bladder and transvaginally utilizing grayscale, pulse Doppler and color flow imaging. The uterus appears unremarkable in echotexture and measures 5.0 x 5.9 x 3.5 cm. The endometrial stripe measures 4 mm in thickness. The right ovary measures 3.1 x 3.3 x 2 cm and appears unr emarkable. The left ovary measures 2.2 x 3.3 x 2.3 cm and appears unremarkable. Arterial and venous flow is noted within the bilateral ovaries. Small free fluid is identified in the cul-de-sac, presumably physiologic. IMPRESSION: Unremarkable pelvic sonogram. at 1624 Reported and signed by: Scott Cantu CC: Stella Burkett MD Technologist: Salas Mortensen, RT(R),RDMS(AB) Transcrpt Date/Tm/Trnsp: 11/12/2018 (1624) [email or web address] Orig Print D/T: S: 11/12/2018 (3913) [facility] NAME: CRISTIANO MARISCAL [id number] [address] PHYS: [place] [address] : 2000 AGE: 18 SEX: F LOC: CHRISTIANNE PHONE #: [phone] EXAM DATE: 11/12/2018 STATUS: PRE CLI FAX #: [phone] RADIOLOGY NO: PAGE 1 Signed Report
--- NOTE | 2022-05-16 16:50 | RAD REPORT ---
EXAM DESCRIPTION: RAD - Foot Left 3 View - 05/16/2022 3:21 pm CLINICAL HISTORY: PAIN COMPARISON: No comparisons FINDINGS: Oblique fracture is seen affecting the fifth metatarsal shaft. Mild adjacent soft tissue s welling.
--- NOTE | 2022-05-16 17:33 | EDPHYS ---
Physician Documentation [facility] Name: Etta Mariscal Age: 22 yrs Sex: Female : 2000 Arrival Date: 05/16/2022 Time: 14:18 Bed 10 Private MD: ED Physician Aba Jimenez HPI: 05/16 14:55 This 22 yrs old Unknown Female presents to ER via Ambulatory with complaints of Foot jh7 Injury - left. 14:55 The patient presents with pain, that is acute, swelling, tenderness. The complaints jh7 affect the left foot. Onset: The symptoms/episode began/occurred acutely. Associated signs and symptoms: The patient has no apparent associated signs or symptoms. Patient reports that she was learning to dance and fell, landing on her left foot. Reports left lateral foot pain. No LOC or head injury.. Historical: - Allergies: 14:55 No Known Allergies; ld1 - PMHx: 14:55 Anxiety; borderline disorder; Depression; Endometriosis; ld1 - PSHx: 14:55 None; ld1 - Immunization history:: Adult Immunizations up to date, Client reports receiving the 2nd dose of the Covid vaccine. - Social history:: Smoking status: Patient denies any tobacco usage or history of. Patient/guardian denies using alcohol. ROS: 14:55 Constitutional: Negative for fever, chills, and weight loss, Eyes: Negative for injury, jh7 pain, redness, and discharge, Neck: Negative for injury, pain, and swelling, Cardiovascular: Negative for chest pain, palpitations, and edema, Respiratory: Negative for shortness of breath, cough, wheezing, and pleuritic chest pain, Back: Negative for injury and pain, Skin: Negative for injury, rash, and discoloration, Neuro: Negative for headache, weakness, numbness, tingling, and seizure. 14:55 MS/extremity: Positive for pain, swelling, tenderness. 14:55 All other systems are negative. Exam: 14:55 Constitutional: This is a well developed, well nourished patient who is awake, alert, jh7 and in no acute distress. Head/Face: Normocephalic, atraumatic. Eyes: Pupils equal round and reactive to light, extra-ocular motions intact. Lids and lashes normal. Conjunctiva and sclera are non-icteric and not injected. Cornea within normal limits. Periorbital areas with no swelling, redness, or edema. Neck: Trachea midline, no thyromegaly or masses palpated, and no cervical lymphadenopathy. Supple, full range of motion without nuchal rigidity, or vertebral point tenderness. No Meningismus. Cardiovascular: Regular rate and rhythm with a normal S1 and S2. No gallops, murmurs, or rubs. Normal PMI, no JVD. No pulse deficits. Respiratory: Lungs have equal breath sounds bilaterally, clear to auscultation and percussion. No rales, rhonchi or wheezes noted. No increased work of breathing, no retractions or nasal flaring. Back: No spinal tenderness. No costovertebral tenderness. Full range of motion. Skin: Warm, dry with normal turgor. Normal color with no rashes, no lesions, and no evidence of cellulitis. Neuro: Awake and alert, GCS 15, oriented to person, place, time, and situation. Motor strength 5/5 in all extremities. Sensory grossly intact. Normal gait. 14:55 Musculoskeletal/extremity: L foot: NVI, full ROM, pain and TTP noted over the L 5th metatarsal shaft. Sensation intact. Pain with weightbearing.. Vital Signs: 14:54 BP 116 / 78; Pulse 84; Resp 18; Temp 97.9(TE); Pulse Ox 100% on R/A; Weight 63.96 kg; ld1 Height 5 ft. 6 in. (167.64 cm); Pain 8/10; 14:54 Body Mass Index 22.76 (63.96 kg, 167.64 cm) ld1 MDM: 14:32 Patient medically screened. [facility] 17:56 Differential diagnosis: closed fracture, contusion. Data reviewed: vital signs, nurses [facility] notes, radiologic studies, plain films. Data interpreted: Pulse oximetry: is 100 %. Interpretation: normal. Counseling: I had a detailed discussion with the patient and/or guardian regarding: the historical points, exam findings, and any diagnostic results supporting the discharge/admit diagnosis, the need for outpatient follow up, a orthopedic surgeon, to return to the emergency department if symptoms worsen or persist or if there are any questions or concerns that arise at home. 05/16 14:54 Order name: XRAY Foot LEFT 3 View; Complete Time: 17:00 ld1 05/16 16:32 Order name: Crutches [facility] 12 17:56 Order name: Walking boot [facility] Administered Medications: No medications were administered Disposition Summary: 05/16/22 17:33 Discharge Ordered Location: Home [facility] Problem: new [facility] Symptoms: are unchanged [facility] Condition: Stable [facility] Diagnosis - Displaced fracture of fifth metatarsal bone, left foot [facility] Followup: [facility] - With: Santiago Clark MD - When: 2 - 3 days - Reason: Recheck today's complaints Discharge Instructions: - Discharge Summary Sheet [facility] - Cast or Splint Care, Adult [facility] - Crutch Use, Adult [facility] - Metatarsal Fracture [facility] Forms: - Medication Reconciliation Form [facility] - Thank You Letter [facility] Addendum: 05/19/2022 08:00 Co-signature as Attending Physician, Aba Jimenez MD I agree with the assessment and c watkins plan of care. Signatures: Dispatcher [employer] EDAba Matias MD MD cha Dibbern, Lauren, RN RN ld1 Jeanne Arechiga FNP BAIL AGENT [facility] Corrections: (The following items were deleted from the chart) 05/16 17:56 16:32 Splint - Posterior Leg [place]. [place] [address]
--- NOTE | 2022-05-16 17:33 | ER ---
Nurse's Notes [facility] Name: Etta Mariscal Age: 22 yrs Sex: Female : 2000 Arrival Date: 05/16/2022 Time: 14:18 Bed 10 Private MD: Diagnosis: Displaced fracture of fifth metatarsal bone, left foot Presentation: 05/16 14:54 Chief complaint: Patient states: Pain to left foot. "I was trying to learn how to dance ld1 to moldovan music, he grabbed my foot and I fell.". Coronavirus screen: At this time, the client does not indicate any symptoms associated with coronavirus-19. Ebola Screen: No symptoms or risks identified at this time. Initial Sepsis Screen: Does the patient meet any 2 criteria? No. Patient's initial sepsis screen is negative. Does the patient have a suspected source of infection? No. Patient's initial sepsis screen is negative. Risk Assessment: Do you want to hurt yourself or someone else? Patient reports no desire to harm self or others. Onset of symptoms was May 16, 2022. 14:54 Method Of Arrival: Ambulatory ld1 14:54 Acuity: YISSEL 4 ld1 Triage Assessment: 14:55 General: Appears in no apparent distress. comfortable, Behavior is calm, cooperative, ld1 appropriate for age. Pain: Complains of pain in left foot Pain does not radiate. Pain currently is 8 out of 10 on a pain scale. EENT: No signs and/or symptoms were reported regarding the EENT system. Neuro: Level of Consciousness is awake, alert, obeys commands, Oriented to person, place, time, situation. Cardiovascular: Capillary refill < 3 seconds Patient's skin is warm and dry. Respiratory: Airway is patent Respiratory effort is even, unlabored. GI: Abdomen is flat, non-distended. : No signs and/or symptoms were reported regarding the genitourinary system. Musculoskeletal: No signs and/or symptoms reported regarding the musculoskeletal system. Historical: - Allergies: 14:55 No Known Allergies; ld1 - PMHx: 14:55 Anxiety; borderline disorder; Depression; Endometriosis; ld1 - PSHx: 14:55 None; ld1 - Immunization history:: Adult Immunizations up to date, Client reports receiving the 2nd dose of the Covid vaccine. - Social history:: Smoking status: Patient denies any tobacco usage or history of. Patient/guardian denies using alcohol. Vital Signs: 14:54 BP 116 / 78; Pulse 84; Resp 18; Temp 97.9(TE); Pulse Ox 100% on R/A; Weight 63.96 kg; ld1 Height 5 ft. 6 in. (167.64 cm); Pain 8/10; 14:54 Body Mass Index 22.76 (63.96 kg, 167.64 cm) ld1 ED Course: 14:18 Patient arrived in ED. am2 14:32 [facility]iga [facility] jh7 14:32 Aba Jimenez MD is Attending Physician. jh7 14:55 Triage completed. ld1 14:55 Arm band placed on right wrist. ld1 15:22 XRAY Foot LEFT 3 View In Process Unspecified. EDMS 17:32 Santiago Clark MD is Referral Physician. 7 18:00 Veronica Das, RN is Primary Nurse. iw Administered Medications: No medications were administered Outcome: 17:33 Discharge ordered by . jh7 18:00 Patient left the ED. iw Signatures: Dispatcher [employer] EDMS Veronica Das, SULAIMAN RN iw Sadia Galeano am2 Gricelda Manuel RN RN 1 Jeanne Arechiga FNP FNP [facility]
[2022-05-16 18:11] VITALS: BP 116/78; TEMP 97.9; O2SAT 100
== END 2022-05-16 18:00 | disposition home or self-care (01) ==
LOC: ER 14:17
DX: S92.352A Displaced fracture of fifth metatarsal bone, left foot, initial encounter for closed fracture (principal)
CPT/HCPCS: 99282